=== PATIENT | female | born 1950 | race Caucasian/White ===

== ENCOUNTER → 2023-12-09 | Outpatient (CLI) | payer MEDICARE ==
[~2023-12-09] MED LIST: ADV500INH INH; ADVA45AE INH; DOXY-440 PO; HYDR-3713 PO; VENTAER INH; XARE10TA PO
== END ==
LOC: M ONCR 13:10
PROVIDERS: ATTEND General Practice
DX: C44.712 Basal cell carcinoma of skin of right lower limb, including hip (principal); D68.52 Prothrombin gene mutation; R60.0 Localized edema; Z71.2 Person consulting for explanation of examination or test findings; Z79.01 Long term (current) use of anticoagulants; Z79.51 Long term (current) use of inhaled steroids; Z80.8 Family history of malignant neoplasm of other organs or systems; Z86.718 Personal history of other venous thrombosis and embolism; Z87.891 Personal history of nicotine dependence; Z96.642 Presence of left artificial hip joint

== ENCOUNTER → 2023-12-31 | Outpatient (RCR) | payer MEDICARE ==
[~2023-12-31] MED LIST changes: +TRIA1OI TOP
== END ==
LOC: M ONCR 12-10 10:16
PROVIDERS: ATTEND General Practice
DX: Z51.0 Encounter for antineoplastic radiation therapy (principal); C44.712 Basal cell carcinoma of skin of right lower limb, including hip

== ENCOUNTER 2024-01-25 13:14 | Outpatient (RCR) | payer MEDICARE ==
[~2024-01-25 13:14] MED LIST changes: +LIDO15SO9 PO; +OXYC-673 PO; +PERC5TAB12 PO
== END 2024-01-30 ==
LOC: M ONCR 13:14
PROVIDERS: ATTEND General Practice
DX: Z51.0 Encounter for antineoplastic radiation therapy (principal); C44.712 Basal cell carcinoma of skin of right lower limb, including hip

== ENCOUNTER → 2024-02-08 | Outpatient (CLI) | payer MEDICARE ==
[~2024-02-08] MED LIST changes: +OXYC-1 PO
== END ==
LOC: M ONCR 15:22
PROVIDERS: ATTEND General Practice
DX: M79.661 Pain in right lower leg (principal); L30.9 Dermatitis, unspecified

== ENCOUNTER → 2024-03-07 | Outpatient (CLI) | payer MEDICARE, OTHER | LOC: M ONCR 14:55 | PROVIDERS: ATTEND General Practice | DX: C44.712 Basal cell carcinoma of skin of right lower limb, including hip (principal); Z92.3 Personal history of irradiation ==

== ENCOUNTER → 2024-03-27 | Outpatient (CLI) | payer MEDICARE, OTHER | LOC: M RAD 14:26 | PROVIDERS: ATTEND Physician Assistant | DX: S81.801A Unspecified open wound, right lower leg, initial encounter (principal); R09.89 Other specified symptoms and signs involving the circulatory and respiratory systems; X58.XXXA Exposure to other specified factors, initial encounter; Y92.9 Unspecified place or not applicable ==

== ENCOUNTER → 2024-03-30 | Outpatient (REF) | payer MEDICARE, OTHER ==
[2024-03-30 18:43] LABS: BASO % 0.1 % (0.0-1.0); EOS # 0.1 10^3/uL (0.0-0.5); EOS % 1.9 % (0.0-3.0); HEMATOCRIT 27.8 % (36.0-47.0); HEMOGLOBIN 7.8 g/dl (12.0-15.5); LYMPH # 0.8 10^3/uL (1.5-5.0); LYMPH % 11.3 % (24.0-44.0); MEAN CORPUSCULAR HGB CONC 28.1 g/dl (32.0-36.5); MEAN CORPUSCULAR VOLUME 74.9 fl (80.0-96.0); MONO # 0.6 10^3/uL (0.0-0.8); MONO % 8.6 % (2.0-8.0); NEUTROPHILS # 5.5 10^3/uL (1.5-8.5); NEUTROPHILS % 77.8 % (36.0-66.0); PLATELET COUNT, AUTOMATED 414 10^3/uL (150-450); RED BLOOD COUNT 3.71 10^6/uL (4.00-5.40)
[2024-03-30 19:17] LABS: PERCENT SATURATION 3.8 % (13.2-45.0)
[2024-03-30 19:19] LABS: FERRITIN 6.5 NG/ML (7.3-270.7)
[2024-03-30 19:20] LABS: FOLATE 13.37 NG/ML (>5.4)
== END ==
LOC: M SFHCCLAY 14:14
PROVIDERS: ATTEND Nurse Practitioner Family
DX: D50.9 Iron deficiency anemia, unspecified (principal)

== ENCOUNTER → 2024-04-06 | Outpatient (CLI) | payer MEDICARE, OTHER | LOC: M ONCR 14:30 | PROVIDERS: ATTEND General Practice | DX: T14.8XXA Other injury of unspecified body region, initial encounter (principal); D64.9 Anemia, unspecified; E88.09 Other disorders of plasma-protein metabolism, not elsewhere classified; R60.9 Edema, unspecified; Z79.891 Long term (current) use of opiate analgesic; Z92.3 Personal history of irradiation ==

== ENCOUNTER → 2024-04-06 | Outpatient (REF) | payer MEDICARE, OTHER ==
[2024-04-06 17:14] LABS: BASO % 0.2 % (0.0-1.0); EOS # 0.1 10^3/uL (0.0-0.5); EOS % 1.7 % (0.0-3.0); HEMOGLOBIN 7.9 g/dl (12.0-15.5); LYMPH # 1.1 10^3/uL (1.5-5.0); LYMPH % 13.2 % (24.0-44.0); MEAN CORPUSCULAR HEMOGLOBIN 20.5 pg (27.0-33.0); MEAN CORPUSCULAR HGB CONC 27.2 g/dl (32.0-36.5); MEAN CORPUSCULAR VOLUME 75.1 fl (80.0-96.0); MONO # 0.8 10^3/uL (0.0-0.8); MONO % 9.1 % (2.0-8.0); NEUTROPHILS # 6.3 10^3/uL (1.5-8.5); NEUTROPHILS % 75.2 % (36.0-66.0); PLATELET COUNT, AUTOMATED 469 10^3/uL (150-450); RED BLOOD COUNT 3.86 10^6/uL (4.00-5.40); WHITE BLOOD COUNT 8.4 10^3/uL (4.0-10.0)
[2024-04-06 17:40] LABS: FERRITIN 5.4 NG/ML (7.3-270.7)
== END ==
LOC: M SFHCCLAY 13:05
PROVIDERS: ATTEND Nurse Practitioner Family
DX: D50.9 Iron deficiency anemia, unspecified (principal)

== ENCOUNTER 2024-04-07 10:24 | Outpatient (CLI) | payer OTHER, MEDICARE ==
[~2024-04-07] VITALS: Ht 180.3 cm; Wt 130.9 kg
[2024-04-07 10:40] VITALS: BP 161/70; O2SAT 93
[2024-04-07] MEDS ORDERED: NS 250 ML IV ONE (11:30)
[2024-04-07 14:47] VITALS: BP 141/64; TEMP 98; O2SAT 97
[2024-04-07 15:45] VITALS: BP 128/66; TEMP 96; O2SAT 96
[2024-04-07 16:35] VITALS: BP 139/63; O2SAT 95
== END 2024-04-07 16:35 | disposition home or self-care (01) ==
LOC: M INFU 10:24
PROVIDERS: ATTEND Nurse Practitioner Family
DX: D64.9 Anemia, unspecified (principal); Z88.8 Allergy status to other drugs, medicaments and biological substances
CPT/HCPCS: 36430; 86850; 86900; 86901; 86920; P9016

== ENCOUNTER → 2024-04-13 | Outpatient (REF) | payer MEDICARE, OTHER ==
[2024-04-13 18:22] LABS: BASO % 0.2 % (0.0-1.0); EOS # 0.2 10^3/uL (0.0-0.5); EOS % 2.5 % (0.0-3.0); HEMATOCRIT 33.4 % (36.0-47.0); HEMOGLOBIN 9.3 g/dl (12.0-15.5); LYMPH # 0.9 10^3/uL (1.5-5.0); LYMPH % 9.6 % (24.0-44.0); MEAN CORPUSCULAR HEMOGLOBIN 21.6 pg (27.0-33.0); MEAN CORPUSCULAR HGB CONC 27.8 g/dl (32.0-36.5); MEAN CORPUSCULAR VOLUME 77.7 fl (80.0-96.0); MONO # 0.8 10^3/uL (0.0-0.8); MONO % 8.3 % (2.0-8.0); NEUTROPHILS # 7.1 10^3/uL (1.5-8.5); NEUTROPHILS % 79.1 % (36.0-66.0); PLATELET COUNT, AUTOMATED 447 10^3/uL (150-450)
[2024-04-13 18:44] LABS: PERCENT SATURATION 4.8 % (13.2-45.0)
[2024-04-13 18:46] LABS: FERRITIN 9.9 NG/ML (7.3-270.7)
== END ==
LOC: M SFHCCLAY 13:23
PROVIDERS: ATTEND Nurse Practitioner Family
DX: D50.9 Iron deficiency anemia, unspecified (principal)

== ENCOUNTER → 2024-04-26 | Outpatient (REF) | payer MEDICARE, OTHER ==
[2024-04-26 18:41] LABS: BASO % 0.3 % (0.0-1.0); EOS # 0.1 10^3/uL (0.0-0.5); EOS % 1.2 % (0.0-3.0); HEMATOCRIT 32.2 % (36.0-47.0); HEMOGLOBIN 9.1 g/dl (12.0-15.5); LYMPH # 0.9 10^3/uL (1.5-5.0); LYMPH % 9.9 % (24.0-44.0); MEAN CORPUSCULAR HEMOGLOBIN 21.3 pg (27.0-33.0); MEAN CORPUSCULAR HGB CONC 28.3 g/dl (32.0-36.5); MEAN CORPUSCULAR VOLUME 75.2 fl (80.0-96.0); MONO # 0.8 10^3/uL (0.0-0.8); MONO % 8.9 % (2.0-8.0); NEUTROPHILS # 7.2 10^3/uL (1.5-8.5); NEUTROPHILS % 79.3 % (36.0-66.0); PLATELET COUNT, AUTOMATED 440 10^3/uL (150-450); RED BLOOD COUNT 4.28 10^6/uL (4.00-5.40); WHITE BLOOD COUNT 9.1 10^3/uL (4.0-10.0)
[2024-04-26 19:07] LABS: ALBUMIN 3.3 G/DL (3.2-5.2); ALKALINE PHOSPHATASE 108 U/L (46-116); ALT/SGPT 11 U/L (7.0-40); AST/SGOT < 8 U/L (<34); BILIRUBIN,TOTAL 0.4 MG/DL (0.3-1.2); BLOOD UREA NITROGEN 19 MG/DL (9-23); CARBON DIOXIDE LEVEL 29 MMOL/L (20-31); CHLORIDE LEVEL 106 MMOL/L (98-107); CHOLESTEROL LEVEL 233 MG/DL (<200); CHOLESTEROL RISK RATIO 4.03 (<5); CREATININE FOR GFR 0.58 MG/DL (0.55-1.30); GLOMERULAR FILTRATION RATE > 60.0 (>39); GLUCOSE, FASTING 100 MG/DL (74-106); HDL CHOLESTEROL 57.7 MG/DL (>40); IRON (FE) 13 UG/DL (50-170); LDL CHOLESTEROL 158.5 MG/DL (<100); MAGNESIUM LEVEL 2.1 MG/DL (1.8-2.4); NON-HDL-C 175.3 MG/DL; PERCENT SATURATION 4.1 % (13.2-45.0); POTASSIUM SERUM 4.2 MMOL/L (3.5-5.1); SODIUM LEVEL 137 MMOL/L (136-145); TOTAL IRON BINDING CAPACITY 317 UG/DL (250-425); TOTAL PROTEIN 7.1 G/DL (5.7-8.2); TRIGLYCERIDES LEVEL 84 MG/DL (<150)
[2024-04-26 19:09] LABS: FERRITIN 8.7 NG/ML (7.3-270.7); FREE T4 1.19 NG/DL (0.89-1.76); THYROID STIMULATING HORMONE 2.273 uIU/ML (0.55-4.78)
[2024-04-26 19:44] LABS: HEMOGLOBIN A1c 5.3 % (4.0-6.0)
== END ==
LOC: M SFHCCLAY 13:53
PROVIDERS: ATTEND Nurse Practitioner Family
DX: D50.9 Iron deficiency anemia, unspecified (principal); K59.03 Drug induced constipation; I47.19 Other supraventricular tachycardia; J44.9 Chronic obstructive pulmonary disease, unspecified; E78.00 Pure hypercholesterolemia, unspecified

== ENCOUNTER → 2024-05-23 | Outpatient (CLI) | payer MEDICARE, OTHER ==
[~2024-05-23] MED LIST changes: +PENT400T47 PO; +VITA-297 PO
== END ==
LOC: M ONCR 15:32
PROVIDERS: ATTEND General Practice
DX: C44.712 Basal cell carcinoma of skin of right lower limb, including hip (principal); R59.0 Localized enlarged lymph nodes; S81.801A Unspecified open wound, right lower leg, initial encounter; Y92.9 Unspecified place or not applicable; Y93.9 Activity, unspecified
CPT/HCPCS: 10005; 88305; G0463

== ENCOUNTER → 2024-05-29 | Outpatient (CLI) | payer OTHER, MEDICARE ==
[~2024-05-29] MED LIST changes: +MORP-69 PO
== END ==
LOC: M ONCR 15:17
PROVIDERS: ATTEND General Practice
DX: C44.712 Basal cell carcinoma of skin of right lower limb, including hip (principal); R52 Pain, unspecified

== ENCOUNTER → 2024-06-01 | Outpatient (CLI) | payer OTHER, MEDICARE ==
[~2024-06-01] MED LIST changes: +IBUP1TAB7 PO
== END ==
LOC: M ONCR 15:20
PROVIDERS: ATTEND General Practice
DX: C44.712 Basal cell carcinoma of skin of right lower limb, including hip (principal)

== ENCOUNTER → 2024-06-06 | Outpatient (CLI) | payer MEDICARE, OTHER | LOC: M ONCR 15:37 | PROVIDERS: ATTEND General Practice | DX: C44.712 Basal cell carcinoma of skin of right lower limb, including hip (principal); R52 Pain, unspecified ==

== ENCOUNTER → 2024-06-09 | Outpatient (CLI) | payer MEDICARE, OTHER | LOC: M ONCR 15:40 | PROVIDERS: ATTEND General Practice | DX: C44.712 Basal cell carcinoma of skin of right lower limb, including hip (principal) ==

== ENCOUNTER → 2024-06-13 | Outpatient (CLI) | payer MEDICARE, OTHER | LOC: M ONCR 15:33 | PROVIDERS: ATTEND General Practice | DX: C44.712 Basal cell carcinoma of skin of right lower limb, including hip (principal) ==

== ENCOUNTER → 2024-06-16 | Outpatient (CLI) | payer MEDICARE, OTHER ==
[~2024-06-16] MED LIST changes: +ALBU8.5H INH; +FENT12DI8 TOP; +FLUT1BLS3 IH; +NARC1SPR NARES; +PENT400T22 PO
== END ==
LOC: M ONCR 15:24
PROVIDERS: ATTEND General Practice
DX: C44.712 Basal cell carcinoma of skin of right lower limb, including hip (principal); R52 Pain, unspecified; Z48.00 Encounter for change or removal of nonsurgical wound dressing

== ENCOUNTER 2024-06-20 16:09 | Inpatient (IN) | payer OTHER, MEDICARE ==
[~2024-06-20] VITALS: Ht 180.3 cm; Wt 140.5 kg
[~2024-06-20 16:09] MED LIST changes: -ADV500INH INH; +ADVA1AER10 INH; -ALBU8.5H INH; -FLUT1BLS3 IH; -PENT400T22 PO
[2024-06-20 16:52] LABS: BASO % 0.1 % (0.0-1.0); EOS # 0.1 10^3/uL (0.0-0.5); EOS % 0.3 % (0.0-3.0); HEMATOCRIT 24.4 % (36.0-47.0); LYMPH # 0.9 10^3/uL (1.5-5.0); LYMPH % 4.2 % (24.0-44.0); MEAN CORPUSCULAR HEMOGLOBIN 20.5 pg (27.0-33.0); MEAN CORPUSCULAR HGB CONC 28.3 g/dl (32.0-36.5); MEAN CORPUSCULAR VOLUME 72.6 fl (80.0-96.0); MONO # 1.2 10^3/uL (0.0-0.8); MONO % 5.7 % (2.0-8.0); NEUTROPHILS # 18.3 10^3/uL (1.5-8.5); NEUTROPHILS % 88.3 % (36.0-66.0); PLATELET COUNT, AUTOMATED 389 10^3/uL (150-450); RED BLOOD COUNT 3.36 10^6/uL (4.00-5.40); WHITE BLOOD COUNT 20.7 10^3/uL (4.0-10.0)
[2024-06-20 16:57] LABS: HEMOGLOBIN 6.9 g/dl (12.0-15.5)
[2024-06-20 17:16] LABS: BLOOD UREA NITROGEN 30 MG/DL (9-23); CALCIUM LEVEL 8.7 MG/DL (8.3-10.6); CARBON DIOXIDE LEVEL 30 MMOL/L (20-31); CHLORIDE LEVEL 104 MMOL/L (98-107); CREATININE FOR GFR 0.63 MG/DL (0.55-1.30); GLOMERULAR FILTRATION RATE > 60.0 (>39); GLUCOSE, FASTING 105 MG/DL (74-106); POTASSIUM SERUM 3.1 MMOL/L (3.5-5.1); SODIUM LEVEL 141 MMOL/L (136-145)
[2024-06-20] MEDS ORDERED: PENT400T22 PO (18:57)
[2024-06-20] MEDS ORDERED: HOME MED LIST COMPLETE! XX SCH (19:00)
[2024-06-20] MEDS: ceFAZolin SOD 2 GM in IV 1 EA IV ONE (19:13)
[2024-06-20] MEDS ORDERED: NALOXONE INJ 0.4MG/1ML VIAL IV PRN (19:50)
[2024-06-20] MEDS: METHOCARBAMOL 1,000 MG/10 ML VIAL IV ONE (20:09)
[2024-06-20] MEDS ORDERED: VANCOMYCIN/WATER FOR INJ (PEG) 1,500 MG in IV 1 EA IV SCH (20:25)
[2024-06-20 20:33] LABS: INR 1.45; PARTIAL THROMBOPLASTIN TIME 36.2 SECONDS (24.8-34.2); PROTHROMBIN TIME 17.9 SECONDS (12.5-14.5)
[2024-06-20 20:43] LABS: ALBUMIN 2.1 G/DL (3.2-5.2); ALKALINE PHOSPHATASE 148 U/L (35-104); ALT/SGPT 11 U/L (7.0-40); AST/SGOT 12 U/L (<34); BILIRUBIN,DIRECT < 0.1 MG/DL (<0.4); BILIRUBIN,TOTAL 0.2 MG/DL (0.3-1.2); IRON (FE) < 5 UG/DL (50-170); MAGNESIUM LEVEL 1.9 MG/DL (1.8-2.4); PERCENT SATURATION 2.3 % (13.2-45.0); TOTAL IRON BINDING CAPACITY 220 UG/DL (250-425); TOTAL PROTEIN 5.9 G/DL (5.7-8.2)
[2024-06-20 20:46] LABS: FERRITIN 43.8 NG/ML (7.3-270.7)
[2024-06-20] MEDS: ACETAMINOPHEN *IV* 1,000 MG in IV 1 EA IV ONE (20:48)
[2024-06-20 20:50] LABS: PROCALCITONIN 0.22 ng/ml
[2024-06-20] MEDS: COMBIVENT RESPIMAT 100-20MCG INHALER 4GM INH SCH (20:52)
[2024-06-20] MEDS ORDERED: FLUT1BLS3 IH (20:59)
[2024-06-20] MEDS ORDERED: ALBU8.5H INH (20:59)
[2024-06-20] MEDS: ADVAIR HFA 230/21MCG INHALER INH SCH (21:02)
[2024-06-20 22:02] VITALS: BP 146/63; TEMP 98.4; O2SAT 95
[2024-06-20] MEDS: VANCOMYCIN 2,000 MG/400 ML IV BAG *LOAD IV ONE (22:54)
[2024-06-20] MEDS: POTASSIUM CHLORIDE 10MEQ SR TABLET PO ONE (22:58)
[2024-06-20] MEDS: IBUPROFEN 800 MG TAB PO SCH (23:00)
[2024-06-20] MEDS ORDERED: PILL CUTTER 1 EACH XX ONE (23:06)
[2024-06-20 23:27] VITALS: BP 120/55; TEMP 97.9; O2SAT 94
[2024-06-20 23:37] VITALS: BP 120/55; TEMP 97.9; O2SAT 94
[2024-06-20 23:53] VITALS: BP 114/55; TEMP 98.2; O2SAT 96
[2024-06-21] VITALS (16 sets, daily range): BP systolic 106–212; BP diastolic 51–76; TEMP 96.9–99; O2SAT 92–100
[2024-06-21] MEDS: oxyCODONE 5MG TAB PO PRN (00:05)
[2024-06-21] MEDS: PENTOXIFYLLINE 400MG TAB PO SCH (01:14)
[2024-06-21] MEDS: CEFEPIME HCL 2 GM in DEXTROSE 5% (D5W) ADV/MINI-BAG 50 ML IV SCH (04:47)
[2024-06-21 07:54] LABS: HEMATOCRIT 25.7 % (36.0-47.0); HEMOGLOBIN 7.6 g/dl (12.0-15.5)
[2024-06-21 08:18] LABS: BLOOD UREA NITROGEN 22 MG/DL (9-23); CALCIUM LEVEL 8.1 MG/DL (8.3-10.6); CARBON DIOXIDE LEVEL 29 MMOL/L (20-31); CHLORIDE LEVEL 106 MMOL/L (98-107); CREATININE FOR GFR 0.56 MG/DL (0.55-1.30); GLOMERULAR FILTRATION RATE > 60.0 (>39); GLUCOSE, FASTING 101 MG/DL (74-106); POTASSIUM SERUM 3.6 MMOL/L (3.5-5.1); SODIUM LEVEL 142 MMOL/L (136-145)
[2024-06-21 08:38] LABS: ERYTHROCYTE SEDIMENTATION RATE 63 mm/hr (0-30)
[2024-06-21] MEDS: BISACODYL 10MG SUPP PR PRN (09:03)
[2024-06-21] MEDS: PANTOPRAZOLE 40MG TAB (PROTONIX) PO SCH (10:49)
[2024-06-21] MEDS: FERROUS SULFATE 325MG TAB PO SCH (10:50)
[2024-06-21] MEDS: HYDROMORPHONE HCL 0.5 MG/ 0.5 ML SYRINGE IV PRN ×2 (11:57→17:10)
[2024-06-21] MEDS: VANCOMYCIN 1,250 MG/250 ML IV BAG IV SCH (12:01)
[2024-06-21] MEDS: FLEET ENEMA PR PRN (12:38)
[2024-06-21 16:41] LABS: HEMATOCRIT 29.8 % (36.0-47.0)
[2024-06-21] MEDS ORDERED: RIVAROXABAN 10MG TAB (XARELTO) PO SCH (18:00)
[2024-06-21] MEDS: FERRIC CARBOXYMALTOSE INJ 750 MG, VIAL MATE ADAPTER 1 EACH in NS 100 ML IV ONE (20:36)
[2024-06-21] MEDS: SENOKOT S TAB PO SCH (20:37)
[2024-06-22] VITALS (11 sets, daily range): BP systolic 124–154; BP diastolic 50–67; TEMP 97.1–98.6; O2SAT 90–98
[2024-06-22] MEDS: HYDROMORPHONE HCL 0.5 MG/ 0.5 ML SYRINGE IV STA (05:26)
[2024-06-22 07:31] LABS: BASO % 0.1 % (0.0-1.0); EOS # 0.1 10^3/uL (0.0-0.5); EOS % 0.7 % (0.0-3.0); HEMATOCRIT 28.5 % (36.0-47.0); HEMOGLOBIN 8.8 g/dl (12.0-15.5); LYMPH # 1.3 10^3/uL (1.5-5.0); LYMPH % 6.3 % (24.0-44.0); MEAN CORPUSCULAR HEMOGLOBIN 22.8 pg (27.0-33.0); MEAN CORPUSCULAR HGB CONC 30.9 g/dl (32.0-36.5); MEAN CORPUSCULAR VOLUME 73.8 fl (80.0-96.0); MONO # 1.2 10^3/uL (0.0-0.8); MONO % 5.7 % (2.0-8.0); NEUTROPHILS # 17.1 10^3/uL (1.5-8.5); NEUTROPHILS % 85.1 % (36.0-66.0); PLATELET COUNT, AUTOMATED 370 10^3/uL (150-450); RED BLOOD COUNT 3.86 10^6/uL (4.00-5.40); WHITE BLOOD COUNT 20.1 10^3/uL (4.0-10.0)
[2024-06-22] MEDS ORDERED: propofoL 200 MG/20 ML VIAL As Ordered ONE (09:16)
[2024-06-22] MEDS ORDERED: LIDOCAINE 2% 100MG/5ML SDV (FOR ANES.) As Ordered ONE (09:16)
[2024-06-22] MEDS ORDERED: ONDANSETRON 4MG 2ML VIAL As Ordered ONE (09:17)
[2024-06-22] MEDS ORDERED: GLYCOPYRROLATE INJ 0.2 MG/ML 2 ML VIAL As Ordered ONE (09:17)
[2024-06-22] MEDS ORDERED: fentaNYL 100 MCG/2 ML INJECTION As Ordered ONE (09:21)
[2024-06-22] MEDS ORDERED: MIDAZOLAM INJ 2MG/2ML VIAL As Ordered ONE (09:21)
[2024-06-22] MEDS ORDERED: ROCURONIUM BROMIDE 50MG/5ML VIAL As Ordered ONE (10:02)
[2024-06-22] MEDS ORDERED: SUGAMMADEX SODIUM 500 MG/5 ML VIAL (BRIDION) As Ordered ONE (10:02)
[2024-06-22] MEDS ORDERED: fentaNYL 100 MCG/2 ML INJECTION ONE (11:05)
[2024-06-22] MEDS ORDERED: HYDROmorphone HCL 2MG/ML 1ML VIAL As Ordered ONE (11:05)
[2024-06-22] MEDS ORDERED: GENTAMICIN SULF 80MG/2ML VIAL ONE (11:05)
[2024-06-22] MEDS ORDERED: VANCOMYCIN 1000MG/20ML VIAL ONE (11:05)
[2024-06-22] MEDS ORDERED: VANCOMYCIN 500MG/10ML VIAL ONE (11:05)
[2024-06-22] MEDS ORDERED: ACETAMINOPHEN 1000MG/100ML IV BAG As Ordered ONE (11:06)
[2024-06-22] MEDS ORDERED: MEPERIDINE 25 MG/ML 1ML VIAL IV PRN (12:15)
[2024-06-22] MEDS ORDERED: fentaNYL 100 MCG/2 ML INJECTION IV PRN (12:15)
[2024-06-22] MEDS: oxyCODONE 5MG TAB PO PRN (12:38)
[2024-06-22] MEDS: HYDROMORPHONE HCL 0.5 MG/ 0.5 ML SYRINGE IV PRN (12:39)
[2024-06-22] MEDS: VANCOMYCIN 750MG/150 ML IV BAG IV SCH (16:58)
[2024-06-22 20:13] LABS: HEMATOCRIT 29.4 % (36.0-47.0); HEMOGLOBIN 8.7 g/dl (12.0-15.5)
[2024-06-23] MEDS: CEPACOL LOZENGE PO PRN (00:44)
[2024-06-23 04:06] VITALS: BP 133/63; TEMP 97.6; O2SAT 97
[2024-06-23 07:32] LABS: BASO % 0.2 % (0.0-1.0); EOS # 0.1 10^3/uL (0.0-0.5); EOS % 0.3 % (0.0-3.0); HEMATOCRIT 29.5 % (36.0-47.0); HEMOGLOBIN 8.7 g/dl (12.0-15.5); LYMPH # 1.6 10^3/uL (1.5-5.0); LYMPH % 8.3 % (24.0-44.0); MEAN CORPUSCULAR HEMOGLOBIN 22.2 pg (27.0-33.0); MEAN CORPUSCULAR HGB CONC 29.5 g/dl (32.0-36.5); MEAN CORPUSCULAR VOLUME 75.3 fl (80.0-96.0); MONO # 1.1 10^3/uL (0.0-0.8); MONO % 5.6 % (2.0-8.0); NEUTROPHILS # 15.4 10^3/uL (1.5-8.5); NEUTROPHILS % 81.2 % (36.0-66.0); PLATELET COUNT, AUTOMATED 406 10^3/uL (150-450); RED BLOOD COUNT 3.92 10^6/uL (4.00-5.40)
[2024-06-23 07:40] VITALS: BP 132/62; TEMP 97.7; O2SAT 92
[2024-06-23 08:06] LABS: ALBUMIN 1.9 G/DL (3.2-5.2); ALKALINE PHOSPHATASE 198 U/L (35-104); ALT/SGPT 13 U/L (7.0-40); AST/SGOT < 8 U/L (<34); BILIRUBIN,TOTAL 0.2 MG/DL (0.3-1.2); BLOOD UREA NITROGEN 17 MG/DL (9-23); CALCIUM LEVEL 8.3 MG/DL (8.3-10.6); CARBON DIOXIDE LEVEL 29 MMOL/L (20-31); CHLORIDE LEVEL 106 MMOL/L (98-107); CREATININE FOR GFR 0.48 MG/DL (0.55-1.30); GLOMERULAR FILTRATION RATE > 60.0 (>39); GLUCOSE, FASTING 132 MG/DL (74-106); POTASSIUM SERUM 3.8 MMOL/L (3.5-5.1); SODIUM LEVEL 142 MMOL/L (136-145)
[2024-06-23] MEDS: VANCOMYCIN 1,250 MG/250 ML IV BAG IV SCH (09:00)
[2024-06-23] MEDS ORDERED: VANCOMYCIN 1000MG/20ML VIAL ONE (10:51)
[2024-06-23] MEDS ORDERED: VANCOMYCIN 500MG/10ML VIAL ONE (10:51)
[2024-06-23] MEDS ORDERED: fentaNYL 100 MCG/2 ML INJECTION ONE (10:51)
[2024-06-23] MEDS ORDERED: GENTAMICIN SULF 80MG/2ML VIAL ONE (10:51)
[2024-06-23 12:30] VITALS: BP 128/58; TEMP 97.7; O2SAT 97
[2024-06-23] MEDS ORDERED: FENTANYL REMOVAL DOCUMENTATION MISC XX SCH (14:00)
[2024-06-23 16:00] VITALS: BP 135/61; TEMP 97.9; O2SAT 97
[2024-06-23] MEDS: MIRALAX *UNIT DOSE* 17GM PACKET PO SCH (21:34)
[2024-06-23 22:48] VITALS: BP 135/60; TEMP 97.7
[2024-06-24 05:42] VITALS: BP 131/54; TEMP 97.2; O2SAT 95
[2024-06-24 09:56] LABS: HEMATOCRIT 33.3 % (36.0-47.0); HEMOGLOBIN 9.7 g/dl (12.0-15.5); MEAN CORPUSCULAR HEMOGLOBIN 22.7 pg (27.0-33.0); MEAN CORPUSCULAR HGB CONC 29.1 g/dl (32.0-36.5); MEAN CORPUSCULAR VOLUME 77.8 fl (80.0-96.0); PLATELET COUNT, AUTOMATED 490 10^3/uL (150-450); RED BLOOD COUNT 4.28 10^6/uL (4.00-5.40); WHITE BLOOD COUNT 18.6 10^3/uL (4.0-10.0)
[2024-06-24 10:29] LABS: BLOOD UREA NITROGEN 16 MG/DL (9-23); CALCIUM LEVEL 8.6 MG/DL (8.3-10.6); CARBON DIOXIDE LEVEL 28 MMOL/L (20-31); CHLORIDE LEVEL 106 MMOL/L (98-107); GLOMERULAR FILTRATION RATE > 60.0 (>39); GLUCOSE, FASTING 94 MG/DL (74-106); POTASSIUM SERUM 4.3 MMOL/L (3.5-5.1); SODIUM LEVEL 140 MMOL/L (136-145)
[2024-06-24 12:00] VITALS: BP 144/63; TEMP 97.7; O2SAT 95
[2024-06-24 19:43] VITALS: BP 132/52; TEMP 97.4; O2SAT 97
[2024-06-25 04:08] VITALS: BP 131/53; TEMP 97.9; O2SAT 92
[2024-06-25 11:08] LABS: BASO % 0.3 % (0.0-1.0); EOS # 0.3 10^3/uL (0.0-0.5); EOS % 2.1 % (0.0-3.0); HEMATOCRIT 32.8 % (36.0-47.0); HEMOGLOBIN 9.5 g/dl (12.0-15.5); LYMPH % 7.1 % (24.0-44.0); MEAN CORPUSCULAR HEMOGLOBIN 22.7 pg (27.0-33.0); MEAN CORPUSCULAR VOLUME 78.5 fl (80.0-96.0); MONO # 1.2 10^3/uL (0.0-0.8); MONO % 8.8 % (2.0-8.0); NEUTROPHILS # 10.4 10^3/uL (1.5-8.5); NEUTROPHILS % 76.8 % (36.0-66.0); PLATELET COUNT, AUTOMATED 408 10^3/uL (150-450); RED BLOOD COUNT 4.18 10^6/uL (4.00-5.40); WHITE BLOOD COUNT 13.6 10^3/uL (4.0-10.0)
[2024-06-25 11:33] LABS: BLOOD UREA NITROGEN 14 MG/DL (9-23); CALCIUM LEVEL 8.1 MG/DL (8.3-10.6); CARBON DIOXIDE LEVEL 31 MMOL/L (20-31); CHLORIDE LEVEL 109 MMOL/L (98-107); CREATININE FOR GFR 0.49 MG/DL (0.55-1.30); GLOMERULAR FILTRATION RATE > 60.0 (>39); GLUCOSE, FASTING 109 MG/DL (74-106); POTASSIUM SERUM 4.3 MMOL/L (3.5-5.1); SODIUM LEVEL 143 MMOL/L (136-145)
[2024-06-25] MEDS: RIVAROXABAN 10MG TAB (XARELTO) PO SCH (18:12)
[2024-06-25 20:28] VITALS: BP 153/55; TEMP 97.9; O2SAT 94
[2024-06-26 03:46] VITALS: BP 138/54; TEMP 97.9; O2SAT 93
[2024-06-26 07:14] LABS: BASO % 0.2 % (0.0-1.0); EOS # 0.2 10^3/uL (0.0-0.5); EOS % 1.7 % (0.0-3.0); HEMOGLOBIN 8.6 g/dl (12.0-15.5); MEAN CORPUSCULAR HEMOGLOBIN 23.2 pg (27.0-33.0); MEAN CORPUSCULAR HGB CONC 29.7 g/dl (32.0-36.5); MEAN CORPUSCULAR VOLUME 78.4 fl (80.0-96.0); MONO # 1.1 10^3/uL (0.0-0.8); NEUTROPHILS # 9.7 10^3/uL (1.5-8.5); NEUTROPHILS % 78.5 % (36.0-66.0); PLATELET COUNT, AUTOMATED 343 10^3/uL (150-450); WHITE BLOOD COUNT 12.3 10^3/uL (4.0-10.0)
[2024-06-26 07:40] LABS: BLOOD UREA NITROGEN 12 MG/DL (9-23); CALCIUM LEVEL 7.9 MG/DL (8.3-10.6); CARBON DIOXIDE LEVEL 31 MMOL/L (20-31); CHLORIDE LEVEL 106 MMOL/L (98-107); CREATININE FOR GFR 0.42 MG/DL (0.55-1.30); GLOMERULAR FILTRATION RATE > 60.0 (>39); GLUCOSE, FASTING 93 MG/DL (74-106); MAGNESIUM LEVEL 1.9 MG/DL (1.8-2.4); POTASSIUM SERUM 3.7 MMOL/L (3.5-5.1); SODIUM LEVEL 141 MMOL/L (136-145)
[2024-06-26] MEDS ORDERED: DOCUSATE SODIUM 100MG CAPSULE PO PRN (07:45)
[2024-06-26 12:00] VITALS: BP 130/60; TEMP 97.6; O2SAT 95
[2024-06-26 20:00] VITALS: BP 158/72; TEMP 96.8; O2SAT 90
[2024-06-27 03:47] VITALS: TEMP 97.9; O2SAT 90
[2024-06-27 06:50] LABS: BASO % 0.2 % (0.0-1.0); EOS # 0.2 10^3/uL (0.0-0.5); EOS % 1.7 % (0.0-3.0); HEMATOCRIT 29.5 % (36.0-47.0); HEMOGLOBIN 8.7 g/dl (12.0-15.5); LYMPH # 0.8 10^3/uL (1.5-5.0); LYMPH % 6.1 % (24.0-44.0); MEAN CORPUSCULAR HGB CONC 29.5 g/dl (32.0-36.5); MONO # 1.2 10^3/uL (0.0-0.8); MONO % 8.9 % (2.0-8.0); NEUTROPHILS # 10.5 10^3/uL (1.5-8.5); NEUTROPHILS % 81.3 % (36.0-66.0); PLATELET COUNT, AUTOMATED 279 10^3/uL (150-450); RED BLOOD COUNT 3.78 10^6/uL (4.00-5.40); WHITE BLOOD COUNT 12.9 10^3/uL (4.0-10.0)
[2024-06-27 07:14] LABS: BLOOD UREA NITROGEN 14 MG/DL (9-23); CALCIUM LEVEL 7.8 MG/DL (8.3-10.6); CARBON DIOXIDE LEVEL 33 MMOL/L (20-31); CHLORIDE LEVEL 106 MMOL/L (98-107); CREATININE FOR GFR 0.42 MG/DL (0.55-1.30); GLOMERULAR FILTRATION RATE > 60.0 (>39); GLUCOSE, FASTING 103 MG/DL (74-106); POTASSIUM SERUM 3.6 MMOL/L (3.5-5.1); SODIUM LEVEL 142 MMOL/L (136-145)
[2024-06-27] MEDS: LACTOBACILLUS ACIDOPHILUS CAP (BACID) PO SCH (08:00)
[2024-06-27] MEDS: VANCOMYCIN 1,500 MG/300 ML IV BAG IV SCH (10:55)
[2024-06-27 12:00] VITALS: BP 152/59; TEMP 97.9; O2SAT 94
[2024-06-27] MEDS: oxyCODONE 5MG TAB PO PRN (14:25)
[2024-06-27] MEDS: PIPERACILLIN/TAZOBACTAM SOD 3.375 GM in DEXTROSE 5% (D5W) ADV/MINI-BAG 50 ML IV SCH (17:18)
[2024-06-27 20:00] VITALS: BP 146/60; TEMP 97.9; O2SAT 97
[2024-06-28] VITALS (9 sets, daily range): BP systolic 122–158; BP diastolic 51–65; TEMP 97–97.9; O2SAT 93–97
[2024-06-28 06:16] LABS: BASO % 0.2 % (0.0-1.0); EOS # 0.3 10^3/uL (0.0-0.5); EOS % 2.5 % (0.0-3.0); HEMATOCRIT 28.6 % (36.0-47.0); HEMOGLOBIN 8.4 g/dl (12.0-15.5); LYMPH # 0.8 10^3/uL (1.5-5.0); LYMPH % 7.9 % (24.0-44.0); MEAN CORPUSCULAR HEMOGLOBIN 23.1 pg (27.0-33.0); MEAN CORPUSCULAR HGB CONC 29.4 g/dl (32.0-36.5); MEAN CORPUSCULAR VOLUME 78.6 fl (80.0-96.0); MONO # 1.1 10^3/uL (0.0-0.8); MONO % 10.3 % (2.0-8.0); NEUTROPHILS # 8.3 10^3/uL (1.5-8.5); NEUTROPHILS % 77.8 % (36.0-66.0); PLATELET COUNT, AUTOMATED 283 10^3/uL (150-450); RED BLOOD COUNT 3.64 10^6/uL (4.00-5.40); WHITE BLOOD COUNT 10.6 10^3/uL (4.0-10.0)
[2024-06-28 06:38] LABS: BLOOD UREA NITROGEN 14 MG/DL (9-23); CALCIUM LEVEL 8.1 MG/DL (8.3-10.6); CARBON DIOXIDE LEVEL 33 MMOL/L (20-31); CHLORIDE LEVEL 105 MMOL/L (98-107); CREATININE FOR GFR 0.41 MG/DL (0.55-1.30); GLOMERULAR FILTRATION RATE > 60.0 (>39); GLUCOSE, FASTING 94 MG/DL (74-106); POTASSIUM SERUM 3.5 MMOL/L (3.5-5.1); SODIUM LEVEL 141 MMOL/L (136-145)
[2024-06-28 20:21] LABS: HEMATOCRIT 31.5 % (36.0-47.0); HEMOGLOBIN 9.5 g/dl (12.0-15.5)
[2024-06-29 04:00] VITALS: BP 120/49; TEMP 97.3; O2SAT 95
[2024-06-29] MEDS: IRON POLYSAC (NIFEREX) 150 MG CAP PO SCH (08:33)
[2024-06-29 12:00] VITALS: BP 136/61; TEMP 97.9; O2SAT 95
[2024-06-29] MEDS: MOM 30ML SUSPENSION UDC PO SCH (14:34)
[2024-06-29 20:00] VITALS: BP 146/61; TEMP 98.1; O2SAT 92
[2024-06-30 04:00] VITALS: BP 148/65; TEMP 97.5; O2SAT 95
[2024-06-30 06:03] LABS: HEMOGLOBIN 9.1 g/dl (12.0-15.5); MEAN CORPUSCULAR HEMOGLOBIN 23.6 pg (27.0-33.0); MEAN CORPUSCULAR HGB CONC 29.4 g/dl (32.0-36.5); MEAN CORPUSCULAR VOLUME 80.5 fl (80.0-96.0); PLATELET COUNT, AUTOMATED 288 10^3/uL (150-450); RED BLOOD COUNT 3.85 10^6/uL (4.00-5.40); WHITE BLOOD COUNT 8.4 10^3/uL (4.0-10.0)
[2024-06-30 06:27] LABS: BLOOD UREA NITROGEN 17 MG/DL (9-23); CALCIUM LEVEL 8.2 MG/DL (8.3-10.6); CARBON DIOXIDE LEVEL 35 MMOL/L (20-31); CHLORIDE LEVEL 109 MMOL/L (98-107); CREATININE FOR GFR 0.44 MG/DL (0.55-1.30); GLOMERULAR FILTRATION RATE > 60.0 (>39); GLUCOSE, FASTING 101 MG/DL (74-106); POTASSIUM SERUM 3.5 MMOL/L (3.5-5.1); SODIUM LEVEL 143 MMOL/L (136-145)
[2024-06-30] MEDS: POTASSIUM CHLORIDE 10MEQ SR TABLET PO ONE (09:01)
[2024-06-30 12:00] VITALS: BP 142/64; TEMP 97.3; O2SAT 94
[2024-06-30 20:00] VITALS: BP 112/50; TEMP 97.7; O2SAT 93
[2024-07-01 12:30] VITALS: BP 141/54; TEMP 97.5; O2SAT 95
[2024-07-02 04:00] VITALS: BP 137/53; TEMP 97.5; O2SAT 91
[2024-07-02 06:58] LABS: HEMATOCRIT 31.7 % (36.0-47.0); HEMOGLOBIN 9.1 g/dl (12.0-15.5); MEAN CORPUSCULAR HEMOGLOBIN 23.6 pg (27.0-33.0); MEAN CORPUSCULAR HGB CONC 28.7 g/dl (32.0-36.5); MEAN CORPUSCULAR VOLUME 82.1 fl (80.0-96.0); PLATELET COUNT, AUTOMATED 292 10^3/uL (150-450); RED BLOOD COUNT 3.86 10^6/uL (4.00-5.40); WHITE BLOOD COUNT 4.7 10^3/uL (4.0-10.0)
[2024-07-02 07:22] LABS: BLOOD UREA NITROGEN 13 MG/DL (9-23); CALCIUM LEVEL 8.4 MG/DL (8.3-10.6); CARBON DIOXIDE LEVEL 34 MMOL/L (20-31); CHLORIDE LEVEL 105 MMOL/L (98-107); CREATININE FOR GFR 0.41 MG/DL (0.55-1.30); GLOMERULAR FILTRATION RATE > 60.0 (>39); GLUCOSE, FASTING 94 MG/DL (74-106); MAGNESIUM LEVEL 2.1 MG/DL (1.8-2.4); POTASSIUM SERUM 3.9 MMOL/L (3.5-5.1); SODIUM LEVEL 144 MMOL/L (136-145)
[2024-07-02 12:20] VITALS: BP 144/54; TEMP 97.5; O2SAT 93
[2024-07-02] MEDS: CALAMINE LOTION 177 ML BTL TOP PRN (16:19)
[2024-07-02 20:00] VITALS: BP 145/57; TEMP 97.7; O2SAT 93
[2024-07-02] MEDS ORDERED: CALAMINE LOTION 177 ML BTL TOP SCH (21:00)
[2024-07-03 04:00] VITALS: BP 151/61; TEMP 97.1; O2SAT 91
[2024-07-03] MEDS ORDERED: LIDOCAINE 1% MDV 20ML VIAL As Ordered ONE (12:31)
[2024-07-03 20:18] VITALS: BP 104/59; TEMP 97.2; O2SAT 96
[2024-07-04 05:05] VITALS: BP 137/55; TEMP 96.8; O2SAT 95
[2024-07-04 06:33] LABS: HEMATOCRIT 32.9 % (36.0-47.0); HEMOGLOBIN 9.4 g/dl (12.0-15.5); MEAN CORPUSCULAR HEMOGLOBIN 23.7 pg (27.0-33.0); MEAN CORPUSCULAR HGB CONC 28.6 g/dl (32.0-36.5); MEAN CORPUSCULAR VOLUME 82.9 fl (80.0-96.0); PLATELET COUNT, AUTOMATED 286 10^3/uL (150-450); RED BLOOD COUNT 3.97 10^6/uL (4.00-5.40); WHITE BLOOD COUNT 4.9 10^3/uL (4.0-10.0)
[2024-07-04 06:55] LABS: BLOOD UREA NITROGEN 13 MG/DL (9-23); CALCIUM LEVEL 8.7 MG/DL (8.3-10.6); CARBON DIOXIDE LEVEL 36 MMOL/L (20-31); CHLORIDE LEVEL 105 MMOL/L (98-107); CREATININE FOR GFR 0.42 MG/DL (0.55-1.30); GLOMERULAR FILTRATION RATE > 60.0 (>39); GLUCOSE, FASTING 101 MG/DL (74-106); POTASSIUM SERUM 3.9 MMOL/L (3.5-5.1); SODIUM LEVEL 143 MMOL/L (136-145)
[2024-07-04 12:00] VITALS: BP 135/58; TEMP 97.7
[2024-07-04 20:29] VITALS: BP 139/58; TEMP 97; O2SAT 94
[2024-07-05 04:49] VITALS: BP 142/55; TEMP 97.2; O2SAT 95
[2024-07-05] MEDS: CIPROFLOXACIN 250MG TAB PO SCH (11:20)
[2024-07-05 12:00] VITALS: BP 148/63; TEMP 97.2; O2SAT 94
[2024-07-05 19:48] VITALS: BP 146/63; TEMP 97.3; O2SAT 94
[2024-07-06] VITALS (9 sets, daily range): BP systolic 112–139; BP diastolic 49–71; TEMP 97.2–97.9; O2SAT 87–95
[2024-07-06 07:24] LABS: HEMATOCRIT 35.4 % (36.0-47.0); HEMOGLOBIN 10.3 g/dl (12.0-15.5); MEAN CORPUSCULAR HEMOGLOBIN 24.1 pg (27.0-33.0); MEAN CORPUSCULAR HGB CONC 29.1 g/dl (32.0-36.5); MEAN CORPUSCULAR VOLUME 82.7 fl (80.0-96.0); PLATELET COUNT, AUTOMATED 297 10^3/uL (150-450); RED BLOOD COUNT 4.28 10^6/uL (4.00-5.40); WHITE BLOOD COUNT 4.6 10^3/uL (4.0-10.0)
[2024-07-06 07:51] LABS: BLOOD UREA NITROGEN 12 MG/DL (9-23); CALCIUM LEVEL 9.2 MG/DL (8.3-10.6); CARBON DIOXIDE LEVEL 34 MMOL/L (20-31); CHLORIDE LEVEL 104 MMOL/L (98-107); CREATININE FOR GFR 0.42 MG/DL (0.55-1.30); GLOMERULAR FILTRATION RATE > 60.0 (>39); GLUCOSE, FASTING 96 MG/DL (74-106); SODIUM LEVEL 140 MMOL/L (136-145)
[2024-07-06] MEDS ORDERED: ONDANSETRON 4MG 2ML VIAL IV PRN (12:50)
[2024-07-06] MEDS ORDERED: fentaNYL 100 MCG/2 ML INJECTION IV PRN (12:50)
[2024-07-06] MEDS ORDERED: oxyCODONE 5MG TAB PO PRN (12:50)
[2024-07-06] MEDS: HYDROMORPHONE HCL 0.5 MG/ 0.5 ML SYRINGE IV PRN (13:07)
[2024-07-06] MEDS: oxyCODONE 5MG TAB PO PRN (22:50)
[2024-07-07 02:45] VITALS: BP 109/40; TEMP 96.8; O2SAT 89
[2024-07-07 04:00] VITALS: BP 109/43; TEMP 96.8; O2SAT 93
[2024-07-07 08:14] VITALS: BP 117/44; TEMP 97.3; O2SAT 94
[2024-07-07 09:28] LABS: HEMATOCRIT 34.7 % (36.0-47.0); HEMOGLOBIN 9.9 g/dl (12.0-15.5); MEAN CORPUSCULAR HEMOGLOBIN 24.1 pg (27.0-33.0); MEAN CORPUSCULAR HGB CONC 28.5 g/dl (32.0-36.5); MEAN CORPUSCULAR VOLUME 84.4 fl (80.0-96.0); PLATELET COUNT, AUTOMATED 312 10^3/uL (150-450); RED BLOOD COUNT 4.11 10^6/uL (4.00-5.40); WHITE BLOOD COUNT 4.2 10^3/uL (4.0-10.0)
[2024-07-07 10:02] LABS: BLOOD UREA NITROGEN 21 MG/DL (9-23); CALCIUM LEVEL 9.1 MG/DL (8.3-10.6); CARBON DIOXIDE LEVEL 35 MMOL/L (20-31); CHLORIDE LEVEL 103 MMOL/L (98-107); CREATININE FOR GFR 0.45 MG/DL (0.55-1.30); GLOMERULAR FILTRATION RATE > 60.0 (>39); GLUCOSE, FASTING 92 MG/DL (74-106); POTASSIUM SERUM 4.1 MMOL/L (3.5-5.1); SODIUM LEVEL 142 MMOL/L (136-145)
[2024-07-07] MEDS ORDERED: fentaNYL 100 MCG/2 ML INJECTION IV ONE (11:20)
[2024-07-07 12:00] VITALS: BP 119/65; TEMP 94.5; O2SAT 95
[2024-07-07] MEDS: MORPHINE 4 MG/ML 1ML VIAL IV ONE (12:20)
[2024-07-07] MEDS: CIPROFLOXACIN 500MG TABLET PO SCH (17:29)
[2024-07-07 20:00] VITALS: BP 113/45; TEMP 97.7; O2SAT 93
[2024-07-08] MEDS: diphenhydrAMINE 50MG CAP PO PRN (00:08)
[2024-07-08 04:00] VITALS: BP 113/57; TEMP 97.8; O2SAT 91
[2024-07-08 06:31] LABS: HEMATOCRIT 32.1 % (36.0-47.0); HEMOGLOBIN 9.3 g/dl (12.0-15.5); MEAN CORPUSCULAR HEMOGLOBIN 24.4 pg (27.0-33.0); MEAN CORPUSCULAR VOLUME 84.3 fl (80.0-96.0); PLATELET COUNT, AUTOMATED 262 10^3/uL (150-450); RED BLOOD COUNT 3.81 10^6/uL (4.00-5.40); WHITE BLOOD COUNT 4.7 10^3/uL (4.0-10.0)
[2024-07-08 07:07] LABS: BLOOD UREA NITROGEN 26 MG/DL (9-23); CALCIUM LEVEL 8.7 MG/DL (8.3-10.6); CARBON DIOXIDE LEVEL 36 MMOL/L (20-31); CHLORIDE LEVEL 104 MMOL/L (98-107); CREATININE FOR GFR 0.43 MG/DL (0.55-1.30); GLOMERULAR FILTRATION RATE > 60.0 (>39); GLUCOSE, FASTING 84 MG/DL (74-106); MAGNESIUM LEVEL 1.9 MG/DL (1.8-2.4); POTASSIUM SERUM 4.1 MMOL/L (3.5-5.1); SODIUM LEVEL 142 MMOL/L (136-145)
[2024-07-08] MEDS: MIRALAX *UNIT DOSE* 17GM PACKET PO PRN (17:33)
[2024-07-08] MEDS: BISACODYL 10MG SUPP PR PRN (17:50)
[2024-07-08 20:15] VITALS: BP 125/47; TEMP 97.5; O2SAT 99
[2024-07-09 04:20] VITALS: BP 127/48; TEMP 97.5; O2SAT 92
[2024-07-09] MEDS: FUROSEMIDE 40 MG TAB PO ONE (12:56)
[2024-07-09 20:16] VITALS: BP 128/49; TEMP 97.2; O2SAT 94
[2024-07-10 04:30] VITALS: BP 130/50; TEMP 97.3; O2SAT 97
[2024-07-10 20:26] VITALS: BP 126/49; TEMP 97.7; O2SAT 95
[2024-07-10] MEDS: FUROSEMIDE 20 MG TAB PO ONE (20:36)
[2024-07-11 04:25] VITALS: BP 133/49; TEMP 97; O2SAT 94
[2024-07-11 07:15] LABS: BASO % 0.4 % (0.0-1.0); EOS # 0.2 10^3/uL (0.0-0.5); EOS % 3.4 % (0.0-3.0); HEMATOCRIT 32.9 % (36.0-47.0); HEMOGLOBIN 9.9 g/dl (12.0-15.5); LYMPH # 1.2 10^3/uL (1.5-5.0); LYMPH % 23.3 % (24.0-44.0); MEAN CORPUSCULAR HEMOGLOBIN 24.8 pg (27.0-33.0); MEAN CORPUSCULAR HGB CONC 30.1 g/dl (32.0-36.5); MEAN CORPUSCULAR VOLUME 82.3 fl (80.0-96.0); MONO # 0.6 10^3/uL (0.0-0.8); MONO % 11.8 % (2.0-8.0); NEUTROPHILS % 60.5 % (36.0-66.0); PLATELET COUNT, AUTOMATED 317 10^3/uL (150-450)
[2024-07-11 07:36] LABS: BLOOD UREA NITROGEN 17 MG/DL (9-23); CALCIUM LEVEL 8.8 MG/DL (8.3-10.6); CARBON DIOXIDE LEVEL 33 MMOL/L (20-31); CHLORIDE LEVEL 101 MMOL/L (98-107); GLOMERULAR FILTRATION RATE > 60.0 (>39); GLUCOSE, FASTING 101 MG/DL (74-106); POTASSIUM SERUM 3.9 MMOL/L (3.5-5.1); SODIUM LEVEL 141 MMOL/L (136-145)
[2024-07-11 12:31] VITALS: BP 108/52; TEMP 97.5; O2SAT 96
[2024-07-11 21:13] VITALS: BP 135/52; TEMP 97.7
[2024-07-12 04:00] VITALS: BP 136/57; TEMP 97.2
[2024-07-12 12:00] VITALS: BP 151/61; TEMP 97.5
[2024-07-12] MEDS: oxyCODONE 5MG TAB PO ONE (13:05)
[2024-07-12 20:23] VITALS: BP 135/53; TEMP 97.3; O2SAT 95
[2024-07-13 04:14] VITALS: BP 124/55; TEMP 97; O2SAT 98
[2024-07-13 08:17] LABS: BASO % 0.3 % (0.0-1.0); EOS # 0.3 10^3/uL (0.0-0.5); HEMATOCRIT 32.4 % (36.0-47.0); HEMOGLOBIN 9.8 g/dl (12.0-15.5); LYMPH # 1.3 10^3/uL (1.5-5.0); LYMPH % 21.5 % (24.0-44.0); MEAN CORPUSCULAR HEMOGLOBIN 25.1 pg (27.0-33.0); MEAN CORPUSCULAR HGB CONC 30.2 g/dl (32.0-36.5); MEAN CORPUSCULAR VOLUME 83.1 fl (80.0-96.0); MONO # 0.6 10^3/uL (0.0-0.8); MONO % 9.8 % (2.0-8.0); NEUTROPHILS % 63.9 % (36.0-66.0); PLATELET COUNT, AUTOMATED 290 10^3/uL (150-450); WHITE BLOOD COUNT 6.2 10^3/uL (4.0-10.0)
[2024-07-13 08:23] LABS: ERYTHROCYTE SEDIMENTATION RATE 69 mm/hr (0-30)
[2024-07-13 08:34] LABS: BLOOD UREA NITROGEN 22 MG/DL (9-23); C REACTIVE PROTEIN QUANTITATIV 1.25 MG/DL (<1.0); CALCIUM LEVEL 9.2 MG/DL (8.3-10.6); CARBON DIOXIDE LEVEL 30 MMOL/L (20-31); CHLORIDE LEVEL 106 MMOL/L (98-107); CREATININE FOR GFR 0.47 MG/DL (0.55-1.30); GLOMERULAR FILTRATION RATE > 60.0 (>39); GLUCOSE, FASTING 102 MG/DL (74-106); SODIUM LEVEL 140 MMOL/L (136-145)
[2024-07-13 08:40] LABS: PROCALCITONIN <0.04 ng/ml
[2024-07-13 12:00] VITALS: BP 117/60; TEMP 97.3; O2SAT 96
[2024-07-13 19:58] VITALS: BP 128/50; TEMP 97.7; O2SAT 94
[2024-07-13] MEDS: MAALOX 30 ML SUSP *UDC PO ONE (21:00)
[2024-07-14 04:11] VITALS: BP 125/50; TEMP 97.5; O2SAT 95
[2024-07-14 12:00] VITALS: BP 115/61; TEMP 97.3; O2SAT 93
[2024-07-14 20:00] VITALS: BP 123/59; TEMP 97; O2SAT 94
[2024-07-15] MEDS ORDERED: ONDANSETRON 4MG 2ML VIAL IV PRN (10:50)
[2024-07-15] MEDS: MAALOX 30 ML SUSP *UDC PO PRN (11:19)
[2024-07-15 20:00] VITALS: BP 120/78; O2SAT 92
[2024-07-16 04:00] VITALS: BP 118/64; TEMP 97; O2SAT 96
[2024-07-16 19:39] VITALS: BP 133/48; TEMP 97.6; O2SAT 95
[2024-07-17 03:57] VITALS: BP 156/53; TEMP 97.4; O2SAT 94
[2024-07-17 07:26] LABS: BLOOD UREA NITROGEN 24 MG/DL (9-23); CALCIUM LEVEL 8.9 MG/DL (8.3-10.6); CARBON DIOXIDE LEVEL 32 MMOL/L (20-31); CHLORIDE LEVEL 106 MMOL/L (98-107); CREATININE FOR GFR 0.49 MG/DL (0.55-1.30); GLOMERULAR FILTRATION RATE > 60.0 (>39); GLUCOSE, FASTING 105 MG/DL (74-106); POTASSIUM SERUM 4.2 MMOL/L (3.5-5.1); SODIUM LEVEL 143 MMOL/L (136-145)
[2024-07-18 04:32] VITALS: BP 133/50; TEMP 97.5; O2SAT 96
[2024-07-19 04:39] VITALS: BP 131/51; TEMP 97.2; O2SAT 93
[2024-07-20 05:27] VITALS: BP 129/52; TEMP 97.2; O2SAT 94
[2024-07-20 07:23] LABS: BLOOD UREA NITROGEN 23 MG/DL (9-23); CALCIUM LEVEL 8.9 MG/DL (8.3-10.6); CARBON DIOXIDE LEVEL 31 MMOL/L (20-31); CHLORIDE LEVEL 106 MMOL/L (98-107); CREATININE FOR GFR 0.53 MG/DL (0.55-1.30); GLOMERULAR FILTRATION RATE > 60.0 (>39); GLUCOSE, FASTING 102 MG/DL (74-106); POTASSIUM SERUM 4.2 MMOL/L (3.5-5.1); SODIUM LEVEL 142 MMOL/L (136-145)
[2024-07-21 06:00] VITALS: BP 122/54; TEMP 97; O2SAT 94
[2024-07-21 13:35] LABS: C REACTIVE PROTEIN QUANTITATIV 2.45 MG/DL (<1.0)
[2024-07-22 04:55] VITALS: BP 128/48; TEMP 97.2; O2SAT 92
[2024-07-23 04:00] VITALS: BP 128/48; TEMP 97.2; O2SAT 98
[2024-07-24 04:00] VITALS: BP 127/47; TEMP 96.8; O2SAT 92
[2024-07-25 04:43] VITALS: BP 124/47; TEMP 97.3; O2SAT 88
[2024-07-25 05:08] VITALS: O2SAT 94
[2024-07-26 04:00] VITALS: BP 125/46; TEMP 97.5; O2SAT 95
[2024-07-27 04:00] VITALS: BP 123/45; TEMP 97.2; O2SAT 95
[2024-07-28 04:00] VITALS: BP 128/48; TEMP 97.5; O2SAT 90
[2024-07-28 09:43] LABS: HEMATOCRIT 30.3 % (36.0-47.0); HEMOGLOBIN 9.1 g/dl (12.0-15.5); MEAN CORPUSCULAR HEMOGLOBIN 25.5 pg (27.0-33.0); MEAN CORPUSCULAR VOLUME 84.9 fl (80.0-96.0); PLATELET COUNT, AUTOMATED 294 10^3/uL (150-450); RED BLOOD COUNT 3.57 10^6/uL (4.00-5.40); WHITE BLOOD COUNT 7.5 10^3/uL (4.0-10.0)
[2024-07-29 04:00] VITALS: BP 122/54; TEMP 97.5; O2SAT 93
[2024-07-30 04:00] VITALS: BP 114/46; TEMP 97.2; O2SAT 96
[2024-07-31 04:00] VITALS: BP 133/77; TEMP 97.7; O2SAT 98
[2024-08-01 04:00] VITALS: BP 129/52; TEMP 97.5; O2SAT 96
[2024-08-01 09:15] LABS: HEMATOCRIT 28.6 % (36.0-47.0); HEMOGLOBIN 8.7 g/dl (12.0-15.5); MEAN CORPUSCULAR HEMOGLOBIN 25.4 pg (27.0-33.0); MEAN CORPUSCULAR HGB CONC 30.4 g/dl (32.0-36.5); MEAN CORPUSCULAR VOLUME 83.4 fl (80.0-96.0); PLATELET COUNT, AUTOMATED 304 10^3/uL (150-450); RED BLOOD COUNT 3.43 10^6/uL (4.00-5.40); WHITE BLOOD COUNT 7.6 10^3/uL (4.0-10.0)
[2024-08-01] MEDS: MUPIROCIN 2% OINT 22 GM TUBE TOP SCH (09:46)
[2024-08-02 04:00] VITALS: BP 140/61; TEMP 96.8; O2SAT 86
[2024-08-02] MEDS: CIPROFLOXACIN 500MG TABLET PO SCH (10:28)
[2024-08-03 05:24] VITALS: BP 110/53; TEMP 97.3; O2SAT 95
[2024-08-03] MEDS: DAKIN'S 0.25% HALF-STRENGTH SOLN 480 ML TOP SCH (16:00)
[2024-08-04 04:00] VITALS: BP 115/53; TEMP 96.8; O2SAT 95
[2024-08-04 14:03] LABS: BASO % 0.3 % (0.0-1.0); EOS # 0.2 10^3/uL (0.0-0.5); HEMATOCRIT 28.8 % (36.0-47.0); HEMOGLOBIN 8.6 g/dl (12.0-15.5); LYMPH # 0.9 10^3/uL (1.5-5.0); LYMPH % 12.5 % (24.0-44.0); MEAN CORPUSCULAR HEMOGLOBIN 25.1 pg (27.0-33.0); MEAN CORPUSCULAR HGB CONC 29.9 g/dl (32.0-36.5); MEAN CORPUSCULAR VOLUME 84.2 fl (80.0-96.0); MONO # 0.7 10^3/uL (0.0-0.8); MONO % 8.8 % (2.0-8.0); NEUTROPHILS # 5.5 10^3/uL (1.5-8.5); NEUTROPHILS % 74.9 % (36.0-66.0); PLATELET COUNT, AUTOMATED 322 10^3/uL (150-450); RED BLOOD COUNT 3.42 10^6/uL (4.00-5.40); WHITE BLOOD COUNT 7.4 10^3/uL (4.0-10.0)
[2024-08-04 14:30] LABS: ALBUMIN 2.6 G/DL (3.2-5.2); ALKALINE PHOSPHATASE 105 U/L (35-104); ALT/SGPT 10 U/L (7.0-40); AST/SGOT 9 U/L (<34); BILIRUBIN,TOTAL 0.3 MG/DL (0.3-1.2); BLOOD UREA NITROGEN 22 MG/DL (9-23); CALCIUM LEVEL 8.8 MG/DL (8.3-10.6); CARBON DIOXIDE LEVEL 33 MMOL/L (20-31); CHLORIDE LEVEL 101 MMOL/L (98-107); GLOMERULAR FILTRATION RATE > 60.0 (>39); GLUCOSE, FASTING 126 MG/DL (74-106); POTASSIUM SERUM 4.4 MMOL/L (3.5-5.1); SODIUM LEVEL 140 MMOL/L (136-145); TOTAL PROTEIN 6.5 G/DL (5.7-8.2)
[2024-08-04 15:46] LABS: C REACTIVE PROTEIN QUANTITATIV 3.24 MG/DL (<1.0)
[2024-08-04 15:59] LABS: PROCALCITONIN 0.05 ng/ml
[2024-08-04 16:01] LABS: ERYTHROCYTE SEDIMENTATION RATE 69 mm/hr (0-30)
[2024-08-04 20:01] VITALS: BP 125/52; TEMP 97.8; O2SAT 97
[2024-08-05 05:51] VITALS: BP 123/56; TEMP 97; O2SAT 95
[2024-08-06 05:13] VITALS: BP 140/47; TEMP 97.5; O2SAT 93
[2024-08-07 05:51] VITALS: BP 133/50; TEMP 97.4; O2SAT 95
[2024-08-07] MEDS: CEFTOLOZANE/TAZOBACTAM 3 GM in D5W 100 ML IV SCH (18:49)
[2024-08-07] MEDS: AMOXICILLIN 500 MG CAP PO SCH (21:57)
[2024-08-08] VITALS (9 sets, daily range): BP systolic 105–141; BP diastolic 43–66; TEMP 93.9–97.5; O2SAT 91–96
[2024-08-08] MEDS: GENTAMICIN SULF 80MG/2ML VIAL As Ordered ONE (09:00)
[2024-08-08] MEDS: HYDROMORPHONE HCL 0.5 MG/ 0.5 ML SYRINGE IV STA (10:32)
[2024-08-08] MEDS ORDERED: fentaNYL 100 MCG/2 ML INJECTION IV PRN (10:40)
[2024-08-08] MEDS ORDERED: oxyCODONE 5MG TAB PO PRN (10:40)
[2024-08-08] MEDS ORDERED: ONDANSETRON 4MG 2ML VIAL IV PRN (10:40)
[2024-08-09] VITALS: BP 117/51; TEMP 96.6; O2SAT 95
[2024-08-09 04:00] VITALS: BP 119/52; TEMP 97; O2SAT 97
[2024-08-09 05:29] VITALS: BP 121/50; TEMP 96.8; O2SAT 95
[2024-08-09 09:15] VITALS: BP 114/48; TEMP 97; O2SAT 98
[2024-08-09 09:18] LABS: HEMATOCRIT 30.2 % (36.0-47.0); HEMOGLOBIN 8.8 g/dl (12.0-15.5); MEAN CORPUSCULAR HEMOGLOBIN 24.1 pg (27.0-33.0); MEAN CORPUSCULAR HGB CONC 29.1 g/dl (32.0-36.5); MEAN CORPUSCULAR VOLUME 82.7 fl (80.0-96.0); PLATELET COUNT, AUTOMATED 348 10^3/uL (150-450); RED BLOOD COUNT 3.65 10^6/uL (4.00-5.40); WHITE BLOOD COUNT 7.2 10^3/uL (4.0-10.0)
[2024-08-09 12:46] VITALS: BP 112/47; TEMP 97.5; O2SAT 94
[2024-08-10 04:00] VITALS: BP 130/52; TEMP 97.2; O2SAT 91
[2024-08-10] MEDS: diphenhydrAMINE 50MG/ML VIAL IV ONE (05:51)
[2024-08-10] MEDS: diphenhydrAMINE CREAM 30GM TOP SCH (06:00)
[2024-08-10] MEDS: diphenhydrAMINE 50MG CAP PO ONE (06:10)
[2024-08-10] MEDS: ZINC SULFATE 220 MG CAP PO SCH (10:26)
[2024-08-10 16:45] LABS: EOS # 0.1 10^3/uL (0.0-0.5); EOS % 2.4 % (0.0-3.0); HEMATOCRIT 27.4 % (36.0-47.0); HEMOGLOBIN 8.1 g/dl (12.0-15.5); LYMPH # 0.4 10^3/uL (1.5-5.0); MEAN CORPUSCULAR HEMOGLOBIN 24.5 pg (27.0-33.0); MEAN CORPUSCULAR HGB CONC 29.6 g/dl (32.0-36.5); MEAN CORPUSCULAR VOLUME 82.8 fl (80.0-96.0); MONO # 0.7 10^3/uL (0.0-0.8); MONO % 17.3 % (2.0-8.0); NEUTROPHILS # 2.9 10^3/uL (1.5-8.5); NEUTROPHILS % 69.6 % (36.0-66.0); PLATELET COUNT, AUTOMATED 309 10^3/uL (150-450); RED BLOOD COUNT 3.31 10^6/uL (4.00-5.40); WHITE BLOOD COUNT 4.2 10^3/uL (4.0-10.0)
[2024-08-10 16:50] LABS: ERYTHROCYTE SEDIMENTATION RATE 62 mm/hr (0-30)
[2024-08-10 17:12] LABS: ALBUMIN 2.6 G/DL (3.2-5.2); ALKALINE PHOSPHATASE 107 U/L (35-104); ALT/SGPT 11 U/L (7.0-40); AST/SGOT 9 U/L (<34); BILIRUBIN,TOTAL 0.3 MG/DL (0.3-1.2); BLOOD UREA NITROGEN 22 MG/DL (9-23); C REACTIVE PROTEIN QUANTITATIV 1.28 MG/DL (<1.0); CALCIUM LEVEL 8.7 MG/DL (8.3-10.6); CARBON DIOXIDE LEVEL 32 MMOL/L (20-31); CHLORIDE LEVEL 101 MMOL/L (98-107); CREATININE FOR GFR 0.58 MG/DL (0.55-1.30); GLOMERULAR FILTRATION RATE > 60.0 (>39); GLUCOSE, FASTING 108 MG/DL (74-106); POTASSIUM SERUM 4.2 MMOL/L (3.5-5.1); SODIUM LEVEL 139 MMOL/L (136-145); TOTAL PROTEIN 6.4 G/DL (5.7-8.2)
[2024-08-10] MEDS: LINEZOLID 600MG TABLET (ZYVOX) PO SCH (20:39)
[2024-08-10] MEDS: TRIAMCINOLONE ACET 0.1% OINTMENT 80GM TOP SCH (20:39)
[2024-08-11 04:53] VITALS: BP 124/52; TEMP 97.2; O2SAT 95
[2024-08-11] MEDS: ASCORBIC ACID 500 MG TAB PO SCH (09:32)
[2024-08-11] MEDS: ONDANSETRON 4MG ORAL DISINTEGRATING TAB SL PRN (16:22)
[2024-08-12 05:36] VITALS: BP 113/48; TEMP 96.6; O2SAT 90
[2024-08-12] MEDS: CEFTOLOZANE IV SCH (18:53)
[2024-08-12] MEDS: NS IV SCH (18:53)
[2024-08-12] MEDS: TAZOBACTAM IV SCH (18:53)
[2024-08-13 04:00] VITALS: BP 110/47; TEMP 97; O2SAT 90
[2024-08-14 04:37] VITALS: BP 117/49; TEMP 97.3; O2SAT 91
[2024-08-15] VITALS (12 sets, daily range): BP systolic 104–148; BP diastolic 48–56; TEMP 97.2–98; O2SAT 89–92
[2024-08-15 09:33] LABS: BASO % 0.4 % (0.0-1.0); EOS # 0.1 10^3/uL (0.0-0.5); EOS % 3.1 % (0.0-3.0); HEMATOCRIT 25.7 % (36.0-47.0); HEMOGLOBIN 7.6 g/dl (12.0-15.5); LYMPH # 0.8 10^3/uL (1.5-5.0); LYMPH % 29.5 % (24.0-44.0); MEAN CORPUSCULAR HEMOGLOBIN 24.4 pg (27.0-33.0); MEAN CORPUSCULAR HGB CONC 29.6 g/dl (32.0-36.5); MEAN CORPUSCULAR VOLUME 82.4 fl (80.0-96.0); MONO # 0.4 10^3/uL (0.0-0.8); MONO % 13.8 % (2.0-8.0); NEUTROPHILS # 1.4 10^3/uL (1.5-8.5); NEUTROPHILS % 52.4 % (36.0-66.0); PLATELET COUNT, AUTOMATED 214 10^3/uL (150-450); RED BLOOD COUNT 3.12 10^6/uL (4.00-5.40); WHITE BLOOD COUNT 2.6 10^3/uL (4.0-10.0)
[2024-08-15] MEDS: FUROSEMIDE 40MG/4ML VIAL IV ONE ×2 (11:25→20:14)
[2024-08-16 04:41] VITALS: BP 125/50; TEMP 97.2; O2SAT 90
[2024-08-16 07:40] LABS: BASO % 0.3 % (0.0-1.0); EOS # 0.1 10^3/uL (0.0-0.5); EOS % 2.6 % (0.0-3.0); HEMATOCRIT 30.6 % (36.0-47.0); HEMOGLOBIN 9.3 g/dl (12.0-15.5); LYMPH # 1.2 10^3/uL (1.5-5.0); LYMPH % 33.7 % (24.0-44.0); MEAN CORPUSCULAR HEMOGLOBIN 24.9 pg (27.0-33.0); MEAN CORPUSCULAR HGB CONC 30.4 g/dl (32.0-36.5); MONO # 0.4 10^3/uL (0.0-0.8); MONO % 12.9 % (2.0-8.0); NEUTROPHILS # 1.7 10^3/uL (1.5-8.5); NEUTROPHILS % 50.2 % (36.0-66.0); PLATELET COUNT, AUTOMATED 212 10^3/uL (150-450); RED BLOOD COUNT 3.73 10^6/uL (4.00-5.40); WHITE BLOOD COUNT 3.4 10^3/uL (4.0-10.0)
[2024-08-16 08:06] LABS: BLOOD UREA NITROGEN 22 MG/DL (9-23); C REACTIVE PROTEIN QUANTITATIV 1.75 MG/DL (<1.0); CALCIUM LEVEL 8.8 MG/DL (8.3-10.6); CARBON DIOXIDE LEVEL 33 MMOL/L (20-31); CHLORIDE LEVEL 104 MMOL/L (98-107); CREATININE FOR GFR 0.45 MG/DL (0.55-1.30); GLOMERULAR FILTRATION RATE > 60.0 (>39); GLUCOSE, FASTING 93 MG/DL (74-106); POTASSIUM SERUM 4.1 MMOL/L (3.5-5.1); SODIUM LEVEL 141 MMOL/L (136-145)
[2024-08-17 04:00] VITALS: BP 125/50; TEMP 97.7; O2SAT 91
[2024-08-17 06:46] LABS: HEMATOCRIT 31.8 % (36.0-47.0); HEMOGLOBIN 9.6 g/dl (12.0-15.5); MEAN CORPUSCULAR HEMOGLOBIN 24.7 pg (27.0-33.0); MEAN CORPUSCULAR HGB CONC 30.2 g/dl (32.0-36.5); PLATELET COUNT, AUTOMATED 194 10^3/uL (150-450); RED BLOOD COUNT 3.88 10^6/uL (4.00-5.40)
[2024-08-17 08:33] LABS: EOSINOPHILS 1 % (0-3); LYMPHOCYTES 34 % (16-44); MONOCYTES 7 % (0-5); NEUTROPHILS 58 % (28-66)
[2024-08-17 08:35] LABS: HYPOCHROMASIA 2+
[2024-08-17 08:36] LABS: ANISOCYTOSIS 2+; PLATELET ESTIMATE NORMAL (NORMAL)
[2024-08-17] MEDS: TORSEMIDE 20 MG TAB PO SCH (09:50)
[2024-08-18 04:00] VITALS: BP 129/51; TEMP 97.3; O2SAT 96
[2024-08-19 04:00] VITALS: BP 133/67; TEMP 97.2; O2SAT 95
[2024-08-19] MEDS: ALBUTEROL 90 MCG/ACT 8GM HFA INHALER INH PRN (19:10)
[2024-08-20 04:20] VITALS: BP 134/53; TEMP 97; O2SAT 91
[2024-08-20 06:44] LABS: BASO % 0.2 % (0.0-1.0); EOS # 0.1 10^3/uL (0.0-0.5); EOS % 2.6 % (0.0-3.0); HEMATOCRIT 33.3 % (36.0-47.0); HEMOGLOBIN 9.9 g/dl (12.0-15.5); LYMPH % 21.1 % (24.0-44.0); MEAN CORPUSCULAR HEMOGLOBIN 24.9 pg (27.0-33.0); MEAN CORPUSCULAR HGB CONC 29.7 g/dl (32.0-36.5); MEAN CORPUSCULAR VOLUME 83.7 fl (80.0-96.0); MONO # 0.6 10^3/uL (0.0-0.8); MONO % 13.2 % (2.0-8.0); NEUTROPHILS # 2.9 10^3/uL (1.5-8.5); NEUTROPHILS % 62.5 % (36.0-66.0); PLATELET COUNT, AUTOMATED 242 10^3/uL (150-450); RED BLOOD COUNT 3.98 10^6/uL (4.00-5.40); WHITE BLOOD COUNT 4.7 10^3/uL (4.0-10.0)
[2024-08-20 07:07] LABS: BLOOD UREA NITROGEN 18 MG/DL (9-23); CALCIUM LEVEL 8.4 MG/DL (8.3-10.6); CARBON DIOXIDE LEVEL 36 MMOL/L (20-31); CHLORIDE LEVEL 104 MMOL/L (98-107); GLOMERULAR FILTRATION RATE > 60.0 (>39); GLUCOSE, FASTING 91 MG/DL (74-106); POTASSIUM SERUM 4.1 MMOL/L (3.5-5.1); SODIUM LEVEL 145 MMOL/L (136-145)
[2024-08-20 21:47] LABS: C REACTIVE PROTEIN QUANTITATIV 1.09 MG/DL (<1.0)
[2024-08-21 04:00] VITALS: BP 136/53; TEMP 97.5; O2SAT 92
[2024-08-22 04:29] VITALS: BP 119/53; TEMP 97; O2SAT 90
[2024-08-22] MEDS: LACTIC ACID 12% LOTION 225 GM BTL EXT SCH (12:56)
[2024-08-23 04:47] VITALS: BP 118/53; TEMP 97.7; O2SAT 93
[2024-08-23 07:08] LABS: HEMATOCRIT 33.5 % (36.0-47.0); MEAN CORPUSCULAR HEMOGLOBIN 24.4 pg (27.0-33.0); MEAN CORPUSCULAR HGB CONC 29.9 g/dl (32.0-36.5); MEAN CORPUSCULAR VOLUME 81.9 fl (80.0-96.0); PLATELET COUNT, AUTOMATED 278 10^3/uL (150-450); RED BLOOD COUNT 4.09 10^6/uL (4.00-5.40)
[2024-08-23 07:57] LABS: ALBUMIN 2.7 G/DL (3.2-5.2); ALKALINE PHOSPHATASE 116 U/L (35-104); ALT/SGPT < 9 U/L (7.0-40); AST/SGOT < 8 U/L (<34); BILIRUBIN,TOTAL 0.5 MG/DL (0.3-1.2); BLOOD UREA NITROGEN 17 MG/DL (9-23); CALCIUM LEVEL 8.6 MG/DL (8.3-10.6); CARBON DIOXIDE LEVEL 31 MMOL/L (20-31); CHLORIDE LEVEL 107 MMOL/L (98-107); CREATININE FOR GFR 0.49 MG/DL (0.55-1.30); GLOMERULAR FILTRATION RATE > 60.0 (>39); GLUCOSE, FASTING 111 MG/DL (74-106); POTASSIUM SERUM 4.1 MMOL/L (3.5-5.1); SODIUM LEVEL 143 MMOL/L (136-145); TOTAL PROTEIN 6.4 G/DL (5.7-8.2)
[2024-08-23] MEDS: LACTIC ACID 12% LOTION 225 GM BTL EXT SCH (08:38)
[2024-08-24 06:21] VITALS: BP 118/51; TEMP 97.2; O2SAT 92
[2024-08-25 04:26] VITALS: BP 118/54; TEMP 97.7; O2SAT 90
[2024-08-26 04:00] VITALS: BP 121/54; TEMP 97.2; O2SAT 92
[2024-08-26 06:58] LABS: HEMATOCRIT 31.3 % (36.0-47.0); HEMOGLOBIN 9.3 g/dl (12.0-15.5); MEAN CORPUSCULAR HEMOGLOBIN 24.8 pg (27.0-33.0); MEAN CORPUSCULAR HGB CONC 29.7 g/dl (32.0-36.5); MEAN CORPUSCULAR VOLUME 83.5 fl (80.0-96.0); PLATELET COUNT, AUTOMATED 345 10^3/uL (150-450); RED BLOOD COUNT 3.75 10^6/uL (4.00-5.40); WHITE BLOOD COUNT 7.5 10^3/uL (4.0-10.0)
[2024-08-26 07:24] LABS: ALBUMIN 2.5 G/DL (3.2-5.2); ALKALINE PHOSPHATASE 109 U/L (35-104); ALT/SGPT 10 U/L (7.0-40); AST/SGOT < 8 U/L (<34); BILIRUBIN,TOTAL 0.4 MG/DL (0.3-1.2); BLOOD UREA NITROGEN 24 MG/DL (9-23); CALCIUM LEVEL 8.5 MG/DL (8.3-10.6); CARBON DIOXIDE LEVEL 29 MMOL/L (20-31); CHLORIDE LEVEL 107 MMOL/L (98-107); CREATININE FOR GFR 0.47 MG/DL (0.55-1.30); GLOMERULAR FILTRATION RATE > 60.0 (>39); GLUCOSE, FASTING 109 MG/DL (74-106); POTASSIUM SERUM 4.3 MMOL/L (3.5-5.1); SODIUM LEVEL 141 MMOL/L (136-145); TOTAL PROTEIN 6.2 G/DL (5.7-8.2)
[2024-08-27 04:00] VITALS: BP 133/73; TEMP 97.9; O2SAT 91
[2024-08-28 04:00] VITALS: BP 152/63; TEMP 97.2; O2SAT 95
[2024-08-29 04:00] VITALS: BP 141/52; TEMP 97.3; O2SAT 94
[2024-08-29 09:41] LABS: HEMATOCRIT 31.1 % (36.0-47.0); HEMOGLOBIN 9.2 g/dl (12.0-15.5); MEAN CORPUSCULAR HEMOGLOBIN 24.9 pg (27.0-33.0); MEAN CORPUSCULAR HGB CONC 29.6 g/dl (32.0-36.5); MEAN CORPUSCULAR VOLUME 84.3 fl (80.0-96.0); PLATELET COUNT, AUTOMATED 367 10^3/uL (150-450); RED BLOOD COUNT 3.69 10^6/uL (4.00-5.40); WHITE BLOOD COUNT 6.3 10^3/uL (4.0-10.0)
[2024-08-29 10:19] LABS: ALBUMIN 2.4 G/DL (3.2-5.2); ALKALINE PHOSPHATASE 109 U/L (35-104); ALT/SGPT < 9 U/L (7.0-40); AST/SGOT < 8 U/L (<34); BILIRUBIN,TOTAL 0.3 MG/DL (0.3-1.2); BLOOD UREA NITROGEN 21 MG/DL (9-23); CALCIUM LEVEL 8.2 MG/DL (8.3-10.6); CARBON DIOXIDE LEVEL 32 MMOL/L (20-31); CHLORIDE LEVEL 105 MMOL/L (98-107); CREATININE FOR GFR 0.51 MG/DL (0.55-1.30); GLOMERULAR FILTRATION RATE > 60.0 (>39); GLUCOSE, FASTING 96 MG/DL (74-106); POTASSIUM SERUM 4.4 MMOL/L (3.5-5.1); SODIUM LEVEL 143 MMOL/L (136-145); TOTAL PROTEIN 6.1 G/DL (5.7-8.2)
[2024-08-30 04:18] VITALS: BP 139/49; TEMP 97; O2SAT 91
[2024-08-31 04:00] VITALS: BP 132/49; TEMP 97; O2SAT 95
[2024-08-31] MEDS: oxyCODONE 5MG TAB PO PRN (12:53)
[2024-09-01 04:49] VITALS: BP 130/48; TEMP 97; O2SAT 91
[2024-09-01 06:52] LABS: HEMATOCRIT 31.1 % (36.0-47.0); HEMOGLOBIN 9.3 g/dl (12.0-15.5); MEAN CORPUSCULAR HEMOGLOBIN 24.8 pg (27.0-33.0); MEAN CORPUSCULAR HGB CONC 29.9 g/dl (32.0-36.5); MEAN CORPUSCULAR VOLUME 82.9 fl (80.0-96.0); PLATELET COUNT, AUTOMATED 335 10^3/uL (150-450); RED BLOOD COUNT 3.75 10^6/uL (4.00-5.40); WHITE BLOOD COUNT 6.8 10^3/uL (4.0-10.0)
[2024-09-01 07:17] LABS: ALBUMIN 2.5 G/DL (3.2-5.2); ALKALINE PHOSPHATASE 106 U/L (35-104); ALT/SGPT < 9 U/L (7.0-40); AST/SGOT < 8 U/L (<34); BILIRUBIN,TOTAL 0.2 MG/DL (0.3-1.2); BLOOD UREA NITROGEN 23 MG/DL (9-23); CALCIUM LEVEL 8.4 MG/DL (8.3-10.6); CARBON DIOXIDE LEVEL 30 MMOL/L (20-31); CHLORIDE LEVEL 104 MMOL/L (98-107); CREATININE FOR GFR 0.51 MG/DL (0.55-1.30); GLOMERULAR FILTRATION RATE > 60.0 (>39); GLUCOSE, FASTING 101 MG/DL (74-106); POTASSIUM SERUM 4.2 MMOL/L (3.5-5.1); SODIUM LEVEL 144 MMOL/L (136-145); TOTAL PROTEIN 6.1 G/DL (5.7-8.2)
[2024-09-01 11:00] VITALS: BP 136/80; TEMP 97.3; O2SAT 94
[2024-09-02 04:00] VITALS: BP 128/49; TEMP 97; O2SAT 95
[2024-09-03 04:33] VITALS: BP 127/49; TEMP 97.3; O2SAT 92
[2024-09-04 04:00] VITALS: BP 126/49; TEMP 97.4; O2SAT 95
[2024-09-04 05:47] LABS: HEMATOCRIT 30.6 % (36.0-47.0); HEMOGLOBIN 9.2 g/dl (12.0-15.5); MEAN CORPUSCULAR HEMOGLOBIN 24.9 pg (27.0-33.0); MEAN CORPUSCULAR HGB CONC 30.1 g/dl (32.0-36.5); MEAN CORPUSCULAR VOLUME 82.7 fl (80.0-96.0); PLATELET COUNT, AUTOMATED 290 10^3/uL (150-450); WHITE BLOOD COUNT 7.1 10^3/uL (4.0-10.0)
[2024-09-05] VITALS (13 sets, daily range): BP systolic 122–137; BP diastolic 46–75; TEMP 97.2–97.7; O2SAT 91–96
[2024-09-05] MEDS ORDERED: ONDANSETRON 4MG 2ML VIAL IV PRN (16:30)
[2024-09-05] MEDS ORDERED: MORPHINE 2 MG/ML 1ML VIAL IV PRN (16:30)
[2024-09-05] MEDS ORDERED: oxyCODONE 5MG TAB PO PRN (16:30)
[2024-09-05] MEDS: fentaNYL 100 MCG/2 ML INJECTION IV PRN (16:40)
[2024-09-06 00:02] VITALS: BP 116/49; TEMP 96.6; O2SAT 93
[2024-09-06 04:40] VITALS: BP 132/60; TEMP 97.5; O2SAT 94
[2024-09-06 08:00] VITALS: BP 143/65; TEMP 97.3
[2024-09-06 09:44] LABS: HEMATOCRIT 32.8 % (36.0-47.0); HEMOGLOBIN 9.7 g/dl (12.0-15.5); MEAN CORPUSCULAR HEMOGLOBIN 24.7 pg (27.0-33.0); MEAN CORPUSCULAR HGB CONC 29.6 g/dl (32.0-36.5); MEAN CORPUSCULAR VOLUME 83.7 fl (80.0-96.0); PLATELET COUNT, AUTOMATED 292 10^3/uL (150-450); RED BLOOD COUNT 3.92 10^6/uL (4.00-5.40)
[2024-09-06 11:53] VITALS: BP 119/59; TEMP 97.3; O2SAT 95
[2024-09-06] MEDS: FLEET ENEMA PR PRN (18:59)
[2024-09-06 21:42] VITALS: BP 130/53; TEMP 97.2
[2024-09-07 04:48] VITALS: BP 137/49; TEMP 96.8; O2SAT 94
[2024-09-07 12:02] VITALS: BP 132/47; TEMP 98.1; O2SAT 95
[2024-09-07 21:25] VITALS: BP 127/49; TEMP 97.6
[2024-09-08 05:48] VITALS: BP 108/43; TEMP 96.8; O2SAT 91
[2024-09-08 09:00] VITALS: BP 118/46; TEMP 97.7; O2SAT 95
[2024-09-09 04:00] VITALS: BP_SYST 130; BP_SYST 76; BP_DIAS 44; BP_DIAS 58; TEMP 97; O2SAT 96
[2024-09-09 12:00] VITALS: BP 121/52; TEMP 97
[2024-09-10 04:00] VITALS: BP 121/97; TEMP 96.6; O2SAT 93
[2024-09-10 12:00] VITALS: BP 135/51; TEMP 97
[2024-09-11 04:46] VITALS: BP 133/62; TEMP 98.1; O2SAT 96
[2024-09-11 19:58] VITALS: BP 135/52; TEMP 97.2; O2SAT 96
[2024-09-12 06:00] VITALS: BP 125/50; TEMP 97.3; O2SAT 98
[2024-09-12 12:00] VITALS: BP 133/65; TEMP 97.4; O2SAT 96
[2024-09-12 20:00] VITALS: BP 128/52; TEMP 97.2; O2SAT 97
[2024-09-13 04:00] VITALS: BP 83/60; TEMP 97.2; O2SAT 95
[2024-09-13 07:00] VITALS: BP 105/45; TEMP 97.5; O2SAT 95
[2024-09-13 12:00] VITALS: BP 110/63; TEMP 97.4; O2SAT 95
[2024-09-14 12:00] VITALS: BP 106/53; TEMP 97
[2024-09-15 12:00] VITALS: BP 124/57; TEMP 97.7
[2024-09-16 04:00] VITALS: BP 124/53; TEMP 97.3; O2SAT 96
[2024-09-17 04:09] VITALS: BP 118/54; TEMP 97.3; O2SAT 94
[2024-09-19 06:44] VITALS: BP 100/47; TEMP 97; O2SAT 94
[2024-09-19 09:00] LABS: BASO % 0.5 % (0.0-1.0); EOS # 0.2 10^3/uL (0.0-0.5); EOS % 4.3 % (0.0-3.0); HEMATOCRIT 29.6 % (36.0-47.0); HEMOGLOBIN 8.6 g/dl (12.0-15.5); LYMPH # 1.2 10^3/uL (1.5-5.0); LYMPH % 20.7 % (24.0-44.0); MEAN CORPUSCULAR HEMOGLOBIN 24.1 pg (27.0-33.0); MEAN CORPUSCULAR HGB CONC 29.1 g/dl (32.0-36.5); MEAN CORPUSCULAR VOLUME 82.9 fl (80.0-96.0); MONO # 0.5 10^3/uL (0.0-0.8); MONO % 9.6 % (2.0-8.0); NEUTROPHILS # 3.6 10^3/uL (1.5-8.5); NEUTROPHILS % 64.5 % (36.0-66.0); PLATELET COUNT, AUTOMATED 242 10^3/uL (150-450); RED BLOOD COUNT 3.57 10^6/uL (4.00-5.40); WHITE BLOOD COUNT 5.6 10^3/uL (4.0-10.0)
[2024-09-19 09:30] LABS: BLOOD UREA NITROGEN 20 MG/DL (9-23); C REACTIVE PROTEIN QUANTITATIV 0.64 MG/DL (<1.0); CALCIUM LEVEL 8.5 MG/DL (8.3-10.6); CARBON DIOXIDE LEVEL 30 MMOL/L (20-31); CHLORIDE LEVEL 106 MMOL/L (98-107); CREATININE FOR GFR 0.46 MG/DL (0.55-1.30); GLOMERULAR FILTRATION RATE > 60.0 (>39); GLUCOSE, FASTING 103 MG/DL (74-106); POTASSIUM SERUM 4.3 MMOL/L (3.5-5.1); SODIUM LEVEL 145 MMOL/L (136-145)
[2024-09-20 12:00] VITALS: BP 122/39; TEMP 97.2
[2024-09-21 12:00] VITALS: BP 113/42; TEMP 97.2
[2024-09-22 04:22] VITALS: BP 110/62; TEMP 97; O2SAT 94
[2024-09-23 05:57] VITALS: BP 118/60; TEMP 97.7; O2SAT 94
[2024-09-24 04:00] VITALS: BP 123/54; TEMP 97.9; O2SAT 90
[2024-09-25 06:37] VITALS: BP 120/50; TEMP 97; O2SAT 92
[2024-09-26 05:18] VITALS: BP 119/51; TEMP 97.3
[2024-09-27 04:00] VITALS: BP 115/60; TEMP 96.7; O2SAT 96
[2024-09-28 04:00] VITALS: BP 124/40; TEMP 97.2; O2SAT 88
[2024-09-28] MEDS ORDERED: ALBU8.5H INH (10:57)
[2024-09-28] MEDS ORDERED: PRED20TA PO (10:57)
== END 2024-09-28 13:35 | disposition home health service (06) | DRG 574 ==
LOC: EDBD 16:09 → M ED 16:09 → EEVIPCON 19:59 → OBSVTOIN 19:59 → M ED INP 19:59 → INTOOBSV 19:59 → M PCU 21:53 → M MS5PR 06-22 16:38
PROVIDERS: ADMIT Student in an Organized Health Care Education/Training Program; ATTEND Student in an Organized Health Care Education/Training Program
PROC: 30233N1 Transfusion of Nonautologous Red Blood Cells into Peripheral Vein, Percutaneous Approach (ICD-10-PCS; 2024-06-20)
PROC: 0QBG0ZZ Excision of Right Tibia, Open Approach (ICD-10-PCS; 2024-06-22)
PROC: 0HR Skin and Breast, Replacement (ICD-10-PCS; principal; 2024-06-22 10:30)
PROC: 05HB33Z Insertion of Infusion Device into Right Basilic Vein, Percutaneous Approach (ICD-10-PCS; 2024-07-04)
PROC: 0HRKX74 Replacement of Right Lower Leg Skin with Autologous Tissue Substitute, Partial Thickness, External Approach (ICD-10-PCS; 2024-07-06)
PROC: 0HR Skin and Breast, Replacement (ICD-10-PCS; 2024-07-06)
PROC: 0QBG0ZZ Excision of Right Tibia, Open Approach (ICD-10-PCS; 2024-07-06)
PROC: 0HR Skin and Breast, Replacement (ICD-10-PCS; 2024-08-08)
PROC: 0QBG0ZZ Excision of Right Tibia, Open Approach (ICD-10-PCS; 2024-08-08)
PROC: 0LBN0ZZ Excision of Right Lower Leg Tendon, Open Approach (ICD-10-PCS; 2024-09-05)
PROC: 0QBG0ZZ Excision of Right Tibia, Open Approach (ICD-10-PCS; 2024-09-05)
DX: L03.115 Cellulitis of right lower limb (principal); D68.52 Prothrombin gene mutation; L97.919 Non-pressure chronic ulcer of unspecified part of right lower leg with unspecified severity; M86.171 Other acute osteomyelitis, right ankle and foot; Z68.41 Body mass index [BMI] 40.0-44.9, adult; J96.10 Chronic respiratory failure, unspecified whether with hypoxia or hypercapnia; F11.20 Opioid dependence, uncomplicated; I96 Gangrene, not elsewhere classified; D50.9 Iron deficiency anemia, unspecified; J44.9 Chronic obstructive pulmonary disease, unspecified; E78.5 Hyperlipidemia, unspecified; E66.01 Morbid (severe) obesity due to excess calories; K21.9 Gastro-esophageal reflux disease without esophagitis; B96.20 Unspecified Escherichia coli [E. coli] as the cause of diseases classified elsewhere; Z92.3 Personal history of irradiation; E87.6 Hypokalemia; Z86.718 Personal history of other venous thrombosis and embolism; Z79.01 Long term (current) use of anticoagulants; Z99.81 Dependence on supplemental oxygen; K59.00 Constipation, unspecified; Z96.642 Presence of left artificial hip joint; Z85.528 Personal history of other malignant neoplasm of kidney; Z87.891 Personal history of nicotine dependence; I87.2 Venous insufficiency (chronic) (peripheral); L27.0 Generalized skin eruption due to drugs and medicaments taken internally; R19.7 Diarrhea, unspecified; D63.8 Anemia in other chronic diseases classified elsewhere

== ENCOUNTER → 2024-11-08 | Outpatient (CLI) | payer OTHER, MEDICARE ==
[~2024-11-08] MED LIST changes: +ALBU8.5H INH; +FLUT1BLS3 IH; +OXYC1TAB23 PO; +PENT400T22 PO; +PRED20TA PO
== END ==
LOC: M ONCR 12:39
PROVIDERS: ATTEND General Practice
DX: C44.712 Basal cell carcinoma of skin of right lower limb, including hip (principal); F17.210 Nicotine dependence, cigarettes, uncomplicated; Z92.3 Personal history of irradiation; Z88.1 Allergy status to other antibiotic agents; Z88.8 Allergy status to other drugs, medicaments and biological substances; Z79.01 Long term (current) use of anticoagulants; Z79.51 Long term (current) use of inhaled steroids; Z79.899 Other long term (current) drug therapy

== ENCOUNTER → 2025-02-27 | Outpatient (REF) | payer MEDICARE ==
[~2025-02-27] MED LIST changes: +BENA25CA4 PO; +CIPR-249 PO; +HEMA-PLEX PO; +VITA250T27 PO
== END ==
LOC: M SFHCCLAY 14:56
PROVIDERS: ATTEND Nurse Practitioner Family
DX: Z53.9 Procedure and treatment not carried out, unspecified reason (principal)

== ENCOUNTER → 2025-03-06 | Outpatient (REF) | payer MEDICARE ==
[2025-03-06 18:40] LABS: BASO # 0.0 10^3/uL (0.0-0.2); BASO % 0.3 % (0.0-1.0); EOS # 0.1 10^3/uL (0.0-0.5); EOS % 1.8 % (0.0-3.0); LYMPH # 0.8 10^3/uL (1.5-5.0); LYMPH % 12.0 % (24.0-44.0); MONO # 0.5 10^3/uL (0.0-0.8); MONO % 7.4 % (2.0-8.0); NEUTROPHILS # 5.2 10^3/uL (1.5-8.5); NEUTROPHILS % 78.2 % (36.0-66.0); PLATELET COUNT, AUTOMATED 251 10^3/uL (150-450)
[2025-03-06 18:48] LABS: ALT/SGPT 16 U/L (7.0-40); AST/SGOT 13 U/L (<34); CALCIUM LEVEL 8.9 MG/DL (8.3-10.6); CARBON DIOXIDE LEVEL 39 MMOL/L (20-31); CHLORIDE LEVEL 102 MMOL/L (98-107); CHOLESTEROL LEVEL 242 MG/DL (<200); CHOLESTEROL RISK RATIO 3.32 (<5); CREATININE FOR GFR 0.54 MG/DL (0.55-1.30); GLOMERULAR FILTRATION RATE > 90.0 (>39); IRON (FE) 28 UG/DL (50-170); LDL CHOLESTEROL 158.7 MG/DL (<100); NON-HDL-C 169.3 MG/DL; PERCENT SATURATION 9.2 % (13.2-45.0); POTASSIUM SERUM 4.2 MMOL/L (3.5-5.1); SODIUM LEVEL 143 MMOL/L (136-145); TRIGLYCERIDES LEVEL 53 MG/DL (<150)
[2025-03-06 18:49] LABS: FREE T4 1.24 NG/DL (0.89-1.76)
[2025-03-06 18:51] LABS: ESTIMATED AVERAGE GLUCOSE 94.0 MG/DL (60-110)
== END ==
LOC: M SHH 17:32
PROVIDERS: ATTEND Nurse Practitioner Family
DX: D50.9 Iron deficiency anemia, unspecified (principal); K59.03 Drug induced constipation; I47.19 Other supraventricular tachycardia; J44.9 Chronic obstructive pulmonary disease, unspecified; R00.2 Palpitations; D68.2 Hereditary deficiency of other clotting factors; R73.03 Prediabetes; R78.5 Finding of other psychotropic drug in blood; Z86.718 Personal history of other venous thrombosis and embolism; F17.210 Nicotine dependence, cigarettes, uncomplicated; S81.801D Unspecified open wound, right lower leg, subsequent encounter; Y93.9 Activity, unspecified; Y92.9 Unspecified place or not applicable; Z79.899 Other long term (current) drug therapy